=== PATIENT | male | born 1935 | race Caucasian/White ===

== ENCOUNTER 2016-11-12 23:33 | Inpatient (IN) | payer MEDICARE, BC ==
[2016-11-12] MEDS ORDERED: Morphine INJ* 4 MG/ML 1 ML SYRINGE IV ONE (23:43)
[2016-11-12 23:52] LABS: Hematocrit 39 % (42-52); Hemoglobin 12.9 g/dl (14.0-18.0); Mean Corpuscular HGB Conc 33 g/dl (31-36); Mean Corpuscular Hemoglobin 31 pg (27-31); Mean Corpuscular Volume 95 fL (80-94); Mean Platelet Volume 8 um3 (7.4-10.4); Red Blood Count 4.14 10^6/ul (4.0-5.4); Red Cell Distribution Width 14 % (10.5-15); White Blood Count 13.4 10^3/ul (3.5-10.8)
[2016-11-13 00:09] LABS: Albumin 3.6 g/dL (3.2-5.2); BUN/Creatinine Ratio 16.7 (8-20); C Reactive Protein 136.5 mg/L (< 5.00); Calcium 8.5 mg/dL (8.6-10.3); EGFR African American 96.9 (>60); EGFR Non-African American 75.4 (>60); Globulin 3.8 g/dL (2-4); Potassium 3.9 mmol/L (3.5-5.0); Total Bilirubin 1.2 mg/dL (0.2-1.0); Total Protein 7.4 g/dL (6.4-8.9)
[2016-11-13] MEDS ORDERED: Levofloxacin 750 MG IVPREMIX(* 750 MG/150 ML BAG IVPB ONE (00:12)
[2016-11-13] MEDS ORDERED: NS 0.9% 1000 ML* 2,100 ML IV ONE (00:14)
[2016-11-13 00:16] LABS: Troponin I 0.07 ng/mL (<0.04)
[2016-11-13 00:24] LABS: FIO2 35; PCO2 Arterial 39 mmHg (35-45)
[2016-11-13 00:25] LABS: EPAP 6; IPAP 10
--- NOTE | 2016-11-13 01:09 | ED ---
Hillary Anderson Alfonso, scribed for Beth Eagle MD on 11/13/16 at 0021 . Shortness of Breath - HPI Summary HPI Summary: This patient is an 81 year old M BIBA to [facility] with a chief complaint of SOB worse since yesterday. Pt rates the pain 0/10 in severity. Symptoms aggravated and alleviated by nothing. Pt reports cough. Patient lives with . Tobacco abuse disorder. PMHx of COPD, DM, HTN, and CHF. - History of Current Complaint Chief Complaint: EDShortnessOfBreath Time Seen by Provider: 11/12/16 23:55 Hx Obtained From: Patient Onset/Duration: Sudden Onset, Lasting Days, Worse Since - Yesterday Current Severity: Moderate Aggrevating Factors: Nothing Alleviating Factors: Nothing Associated Signs & Symptoms: Cough (Productive) - Allergy/Home Medications Allergies/Adverse Reactions: Allergies Allergy/AdvReac Type Severity Reaction Status Date / Time Amoxicillin Allergy Rash Verified 11/13/16 00:01 Penicillins Allergy Rash Verified 11/13/16 00:01 Home Medications: Home Medications Furosemide [Lasix] 40 mg PO DAILY 11/12/16 [History Confirmed 11/12/16] Lisinopril [Zestril 10 MG-] 10 mg PO DAILY 11/12/16 [History Confirmed 11/12/16] Metformin ER (NF) 500 mg PO DAILY 11/12/16 [History Confirmed 11/12/16] Nitroglycerin [Nitro-Bid] 2 % TD DAILY PRN 11/12/16 [History Confirmed 11/12/16] Tiotropium CAP.INH* [Spiriva CAP.INH*] 1 cap.inh INH DAILY 11/12/16 [History Confirmed 11/12/16] PMH/Surg Hx/FS Hx/Imm Hx Endocrine/Hematology History: Reports: Hx Diabetes Cardiovascular History: Reports: Hx Congestive Heart Failure, Hx Hypertension Respiratory History: Reports: Hx Asthma, Hx Chronic Obstructive Pulmonary Disease (COPD) Infectious Disease History: No Infectious Disease History: Denies: Traveled Outside the [place] in Last 30 Days - Family History Known Family History: Negative: Hypertension - Social History Lives: With Family - Alcohol Use: None Substance Use Type: Reports: None Smoking Status (MU): Heavy Every Day Tobacco Smoker Review of Systems Constitutional: Negative Positive: Shortness Of Breath, Cough All Other Systems Reviewed And Are Negative: Yes Physical Exam Triage Information Reviewed: Yes Vital Signs On Initial Exam: Initial Vitals Temp Pulse Resp BP Pulse Ox 99.5 F 115 38 158/90 90 11/12/16 23:45 11/12/16 23:45 11/12/16 23:45 11/12/16 23:45 11/12/16 23:45 Vital Signs Reviewed: Yes Appearance: Positive: No Pain Distress, Ill-Appearing - Mild Skin: Positive: Warm, Skin Color Reflects Adequate Perfusion, Dry Eyes: Positive: EOMI, RICHARD ENT: Positive: Pharynx normal, TMs normal Neck: Positive: Supple, Nontender Respiratory/Lung Sounds: Positive: Breath Sounds Present, Other - Tachypneic. Crackles at left base. Cardiovascular: Positive: Tachycardia, Other - No gallops. Negative: Murmur, Rub Abdomen Description: Positive: Nontender, No Organomegaly, Other: - No rebounding. Negative: Distended, Guarding Bowel Sounds: Positive: Present Musculoskeletal: Positive: Strength/ROM Intact, Other - No edema Neurological: Positive: Sensory/Motor Intact, Alert, Oriented to Person Place, Time, CN Intact II-III - 2-12 Psychiatric: Positive: Affect/Mood Appropriate - So Coma Scale Coma Scale Total: 15 Diagnostics - Vital Signs Vital Signs Temp Pulse Resp BP Pulse Ox 11/13/16 00:13 32 11/13/16 00:10 105 28 98 11/12/16 23:45 99.5 F 115 36 158/90 90 - Laboratory Lab Results: Lab Results 11/12/16 11/12/16 11/12/16 Range/Units 23:40 23:40 23:40 WBC 13.4 H (3.5-10.8) 10^3/ul RBC 4.14 (4.0-5.4) 10^6/ul Hgb 12.9 L (14.0-18.0) g/dl Hct 39 L (42-52) % MCV 95 H (80-94) fL MCH 31 (27-31) pg MCHC 33 (31-36) g/dl RDW 14 (10.5-15) % Plt Count 152 (150-450) 10^3/ul MPV 8 (7.4-10.4) um3 Neut % (Auto) 76.5 (38-83) % Lymph % (Auto) 13.2 L (25-47) % [place] % (Auto) 9.9 H (1-9) % Eos % (Auto) 0.1 (0-6) % Baso % (Auto) 0.3 (0-2) % Absolute Neuts (auto) 10.2 H (1.5-7.7) 10^3/ul Absolute Lymphs (auto) 1.8 (1.0-4.8) 10^3/ul Absolute Monos (auto) 1.3 H (0-0.8) 10^3/ul Absolute Eos (auto) 0 (0-0.6) 10^3/ul Absolute Basos (auto) 0 (0-0.2) 10^3/ul Absolute Nucleated RBC 0 10^3/ul Nucleated RBC % 0 Sodium 129 L (133-145) mmol/L Potassium 3.9 (3.5-5.0) mmol/L Chloride 96 L (101-111) mmol/L Carbon Dioxide 22 (22-32) mmol/L Anion Gap 11 (2-11) mmol/L BUN 16 (6-24) mg/dL Creatinine 0.96 (0.67-1.17) mg/dL Est GFR ( Amer) 96.9 (>60) Est GFR (Non-Af Amer) 75.4 (>60) BUN/Creatinine Ratio 16.7 (8-20) Glucose 208 H (70-100) mg/dL Lactic Acid 2.9 H* (0.5-2.0) mmol/L Calcium 8.5 L (8.6-10.3) mg/dL Total Bilirubin 1.20 H (0.2-1.0) mg/dL AST 15 (13-39) U/L ALT 7 (7-52) U/L Alkaline Phosphatase 61 (34-104) U/L Total Creatine Kinase 74 (10-223) U/L CK-MB (CK-2) 3.7 (0.6-6.3) ng/mL Myoglobin 65.7 (17.4-105.7) ng/mL Troponin I Pending C-Reactive Protein 136.50 H (< 5.00) mg/L Total Protein 7.4 (6.4-8.9) g/dL Albumin 3.6 (3.2-5.2) g/dL Globulin 3.8 (2-4) g/dL Albumin/Globulin Ratio 0.9 L (1-3) Result Diagrams: 11/12/16 23:40 11/12/16 23:40 Lab Statement: Any lab studies that have been ordered have been reviewed, and results considered in the medical decision making process. - Radiology CXR Radiology Interpretation Completed By: ED Physician - Infiltrate in left lower lobe. Infiltrate vs chronic lung disease in right lower lobe. - EKG 2347 Cardiac Rate: Tachycardia - BPM 111 EKG Rhythm: Sinus Tachycardia Ectopy: PVCs EKG Interpretation: Anterior Q-waves EKG Comparison: No Significant Change - 06/25/2008 Course/Dx - Course Course Of Treatment: 81 yo male with sob, bnp over 1100, wbc better with bipap and levaquin pt to be admitted by dr. macias - Diagnoses Provider Diagnoses: Congestive heart failure (CHF), COPD exacerbation - Physician Notifications Discussed Care of Patient With: Brigido Macias Time Discussed With Above Provider: 00:17 Instructed by Provider To: Other - Consulted Dr. Macias (hospitalist) who agrees to admit. Discharge - Discharge Plan Condition: Stable Disposition: ADMITTED TO [facility] Referrals: Fletcher SCHMIDT,Erik Roberts [Primary Care Provider] - Sonido Weller MD [Medical Doctor] - The documentation as recorded by the Hillary burkett Alfonso accurately reflects the service I personally performed and the decisions made by me, Beth Eagle MD.
[2016-11-13] MEDS ORDERED: Nitroglycerin 2% OINT* 1 GM PAK TOPICAL PRN (01:14)
[2016-11-13] MEDS ORDERED: Acetaminophen TAB* 325 MG PO PRN (01:17)
[2016-11-13] MEDS ORDERED: Dextrose 50% Syringe 50 ML* 25 GM/50 ML SYRINGE IV PUSH PRN (01:19)
[2016-11-13] MEDS ORDERED: Furosemide IV* 10 MG/ML VIAL (40 MG) IV ONE (01:19)
[2016-11-13] MEDS ORDERED: Morphine INJ* 2 MG/ML 1 ML SYRINGE IV PRN (01:23)
[2016-11-13] MEDS ORDERED: Iodixanol* (CONTRAST) 320 MG/ML 100 ML SDV IV ONE (02:40)
[2016-11-13] MEDS ORDERED: Ondansetron INJ* 2 MG/ML VIAL IV PRN (02:48)
[2016-11-13] MEDS ORDERED: Ondansetron INJ* 2 MG/ML VIAL ONE (02:49)
[2016-11-13] MEDS ORDERED: Heparin DRIP 25,000 UNITS(*) 25,000 UNITS/500 ML BAG IV SCH ×2 (04:15→04:35)
[2016-11-13] MEDS ORDERED: Heparin VIAL(*) 5000 UNITS/ML VIAL (FIVE THOUSAND) IV SCH (05:00)
[2016-11-13] MEDS ORDERED: Heparin VIAL(*) 5000 UNITS/ML VIAL (FIVE THOUSAND) SUBCUT SCH (06:00)
[2016-11-13 06:54] LABS: Hematocrit 37 % (42-52); Hemoglobin 12.3 g/dl (14.0-18.0); Mean Corpuscular HGB Conc 34 g/dl (31-36); Mean Corpuscular Hemoglobin 32 pg (27-31); Mean Corpuscular Volume 95 fL (80-94); Mean Platelet Volume 8 um3 (7.4-10.4); Red Blood Count 3.84 10^6/ul (4.0-5.4); Red Cell Distribution Width 14 % (10.5-15); White Blood Count 10.5 10^3/ul (3.5-10.8)
[2016-11-13 06:58] LABS: EGFR African American 101.8 (>60); EGFR Non-African American 79.2 (>60)
--- NOTE | 2016-11-13 07:17 | HP ---
CC: Erik Bynum MD; Sonido Weller MD * HISTORY AND PHYSICAL: DATE OF ADMISSION: 11/13/16 CHIEF COMPLAINT: Shortness of breath. HISTORY OF PRESENT ILLNESS: The patient is an 81-year-old gentleman who says that for the last two days he has been feeling increasingly short of breath. He denies any chest pain or chest tightness. He does feel like he is "plugged up." He has some wheezing, but no fevers or chills, and a slight cough. Shortness of breath is not positionally he says, but it is worse with any minimal exertion. He normally uses 3 L of oxygen at night or while ambulating. He has been using his medications more frequently, but he says have not been of any benefit. In the ED, the patient was evaluated and found to be in respiratory distress, was initially placed on BiPAP. However, the patient did improve and his ABG was ___ unremarkable. His D- dimer is somewhat elevated and , with an elevated troponin, we will be getting a CTA of his chest. PAST MEDICAL HISTORY: Significant for COPD, two myocardial infarctions with stents placed x2, diabetes mellitus x2, and tobacco abuse. PAST SURGICAL HISTORY: Significant for bilateral carotid endarterectomies. CURRENT MEDICATIONS: 1. Spiriva one capsule inhaled daily. 2. Nitroglycerin two topical daily as needed. 3. Metformin ER 500 mg daily. 4. Lisinopril 10 mg daily. 5. Furosemide 40 mg daily. ALLERGIES: He has an allergy/adverse reaction to AMOXICILLIN and PENICILLIN. FAMILY HISTORY: Reviewed and noncontributory. SOCIAL HISTORY: One pack a day for 62 years. Alcohol, has not drank for 30 years and no recreational drug use. 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 His , Bonita Matthew, is his health care proxy. He has 3 children. REVIEW OF SYSTEMS: A 14-point review of systems was completed with the patient. All pertinent positives and negative are in the history of present illness, otherwise it is negative. PHYSICAL EXAMINATION GENERAL: Pleasant, thin gentleman lying in bed. Breathing is somewhat labored but not in acute distress. VITAL SIGNS: Temperature is 99.5 degrees, heart rate 99 beats per minute, respiratory rate is 24 breaths per minute, pulse oximetry 93%, blood pressure 112/55. HEENT: Normocephalic and atraumatic. Pupils are equal, round and reactive to light. Moist mucous membranes. NECK: Supple. No JVD, bruits, palpable thyroid or lymphadenopathy. CHEST: He has got diminished breath sounds bilaterally. CARDIOVASCULAR: S1, S2 appreciated. ABDOMEN: Positive bowel sounds. Soft, nontender, and nondistended. No hepatosplenomegaly. EXTREMITIES: No cyanosis, clubbing, or edema. +2 pulses bilaterally. NEUROLOGIC: Alert and oriented x3. Moves all extremities. SKIN: No rashes or abnormalities. LABORATORY DATA: White count 13.4, hemoglobin 12.9, hematocrit 39, platelets 152. Sodium 129, potassium 2.9, chloride 96, CO2 of 22, BUN 16, creatinine 0.96 , glucose 208. Lactic acid 2.9. Troponin 0.07. BNP 1101. INR 1.12. D-dimer greater than 1050. ABG - pH 7.36, pCO2 39, pO2 135, bicarb 22.4, pO2 99.2, base axis -3.2. Chest x-ray shows chronic findings including what appears to be possible fibrotic changes. EKG shows sinus tachycardia rate of 111 beats per minute, normal axis, PVCs, non - specific ST-T wave changes. ASSESSMENT AND PLAN: 1. Shortness of breath. I will get a CTA with his elevated troponin and elevated D-dimer. I will place him in the ICU. He is currently not using the BiPAP, but he may require it. He is a DNI/DNR. I will place him on respiratory treatment protocol and supplemental oxygen. Further treatment as his condition indicates. 2. Diabetes mellitus. Hold metformin and fingerstick sliding scale insulin. 3. Chronic obstructive pulmonary disease. Continue Spiriva, and again respiratory treatment protocol. 4. Hypertension. Stable, continue lisinopril. 5. FEN. Consistent carb diet. 6. DVT prophylaxis. Heparin subcu. 7. The patient is a full code. Do not resuscitate/do not intubate. TIME SPENT: Over 80 minutes were spent on this H and P, more than 45 minutes of which were spent in direct [id number] contact with the patient in evaluation, physical exam, counseling, and coordination of care. [id number]/[facility] #: [id number] MTDD
[2016-11-13] MEDS: Tiotropium CAP.INH* CAP.INH/18 MCG INH SCH (07:18)
[2016-11-13 07:29] LABS: Troponin I 7.06 ng/mL (<0.04)
--- NOTE | 2016-11-13 07:31 | RAD ---
INDICATION: Shortness of breath. COMPARISON: Most recent comparison chest x-rays dated June 25, 2008 TECHNIQUE: Single AP portable view of the chest was obtained. FINDINGS: Image quality is compromised due to the relative inferiority of a portable chest x-ray. The heart and mediastinum exhibit normal size and contour. There is coarse calcification again seen at the arch of the aorta. Similar to the previous chest x-ray there is diffuse reticulonodular density. This appears worse when compared to the previous chest x-ray. Furthermore the pulmonary vasculature appears mildly engorged and indistinct. There is bilateral costophrenic angle blunting, more severe at the right lung base than the left. Visualized bones are normal for the patient's age. IMPRESSION: In the correct clinical setting chest x-ray findings are most consistent with exacerbation of congestive heart failure with a small right lung base pleural effusion.
--- NOTE | 2016-11-13 07:45 | RAD ---
HISTORY: Shortness of breath COMPARISONS: November 11, 2016 TECHNIQUE: Multiple contiguous axial CT scans of the chest were obtained after the administration of nonionic intravenous contrast, timed to the pulmonary arterial phase of contrast enhancement.. Coronal and sagittal multiplanar reformations are also submitted for review. FINDINGS: NECK AND THYROID: The lower neck and thyroid are unremarkable. CHEST WALL: There is no lower cervical, axillary, or supraclavicular lymphadenopathy by size criteria. HEART AND PERICARDIUM: The heart is unremarkable. AORTA AND PULMONARY VASCULATURE: There is no pulmonary arterial filling defect to suggest pulmonary embolism. There is no linear filling defect within the aorta to suggest aortic dissection. There is atherosclerosis of the thoracic aorta, which is tortuous. MEDIASTINUM: There are subcentimeter short axis. Vascular and window lymph nodes. There are calcified mediastinal lymph nodes. ANNE MARIE: There are calcified hilar lymph nodes. There is a 1.3 cm short axis left hilar lymph node best visualized on axial image 69. AIRWAY AND ESOPHAGUS: There is peribronchial vascular thickening with opacification of the segmental airways to the left lower lobe suggestive of mucous plugging. LUNG PARENCHYMA: There is diffuse centrilobular emphysematous change. There are calcified granulomas of the lung. PLEURA: No pleural abnormalities are noted. UPPER ABDOMEN: There is nodule of the left adrenal gland measuring 1 Hounsfield units in attenuation consistent with an adenoma. BONES AND SOFT TISSUES: Degenerative changes are noted. OTHER: None. IMPRESSION: 1. NO PULMONARY ARTERIAL FILLING DEFECTS TO SUGGEST PULMONARY WAS OBTAINED. 2. EMPHYSEMA. 3. 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 4. FINDINGS SUGGESTIVE OF MUCOUS PLUGGING TO THE SEGMENTAL AIRWAYS OF THE LEFT LOWER LOBE 5. 1.3 CM SHORT AXIS LEFT HILAR LYMPH NODE. SUBCENTIMETER SHORT AXIS PLACENTAL AND HILAR LYMPH NODES ELSEWHERE. 6. ATHEROSCLEROSIS. 7. LEFT ADRENAL ADENOMA
[2016-11-13] MEDS ORDERED: Perflutren Lipid Microsphere* 3 ML VIAL ONE (07:47)
[2016-11-13] MEDS: Furosemide TAB* 20 MG PO SCH (07:49)
[2016-11-13] MEDS ORDERED: Aspirin TAB* 325 MG PO SCH (08:00)
[2016-11-13] MEDS: Insulin LISPRO* 1 UNITS UNIT SUBCUT SCH ×4 (08:12→20:42)
[2016-11-13] MEDS ORDERED: Clopidogrel TAB* 300 MG PO ONE (08:39)
[2016-11-13] MEDS ORDERED: Spiriva Inhaler DEVICE* 1 EACH DEVICE INH ONE (09:00)
[2016-11-13] MEDS ORDERED: Lisinopril TAB* 10 MG PO SCH ×2 (09:00→17:17)
[2016-11-13] MEDS: Metoprolol Succinate XL TAB* 25 MG PO SCH (09:04)
--- NOTE | 2016-11-13 09:29 | ECHO ---
Patient: SAVANNA PAIZ [facility] Rec#: [id number] : 1935 Date: 11/13/2016 Age: 81y Weight: kg / NaN lbs Sex: M Room#: ICU-5 Admit Date#: 11/13/2016 Type: Inpatient Referring: Brigido Macias MD Reading: Pedro Collins DO Field Merchandiser: Merna Rick RDCS CC: Erik Bynum MD Transthoracic Echocardiogram Indication: Respiratory Failure BP: 110/56 HR: 86 Rhythm: NSR with PVCs Findings History: COPD,DM,HTN,CHF. Technical Comments: The study quality is good. Completed at 0835. Left Ventricle: The left ventricular chamber size is mildly dilated. There are multiple regional wall motion abnormalities. There is severely decreased left ventricular systolic function. The estimated ejection fraction is 20-25%. average volumetric calculation between A2C and A4C is 24% Abnormal left ventricular diastolic function is observed. Left Atrium: The left atrium is mildly dilated. Right Ventricle: The right ventricular chamber size and systolic function are within normal limits. Right Atrium: The right atrial cavity size is normal. Aortic Valve: The aortic valve leaflets are mildly thickened. There is no evidence of aortic regurgitation. There is mild aortic stenosis. Mitral Valve: The mitral valve leaflets are mildly thickened. There is mild mitral regurgitation. There is no evidence of mitral stenosis. Tricuspid Valve: The tricuspid valve leaflets are normal. There is mild to moderate tricuspid regurgitation. There is evidence of mild pulmonary hypertension. There is no tricuspid stenosis. Pulmonic Valve: The pulmonic valve appears normal. There is a trace pulmonic regurgitation. There is no pulmonic stenosis. Pericardium: There is no significant pericardial effusion. Aorta: There is mild dilatation of the ascending aorta. The aortic arch is not well visualized. There is no dilation of the aortic root. Pulmonary Artery: The main pulmonary artery is not well visualized. Venous: The inferior vena cava appears normal in size. There is an approximate 50% respiratory change in the inferior vena cava dimension. Contrast: Definity was used to optimize study. A total of 2.5ml used. Intravenous contrast was used to enhance endocardial border definition. Conclusions The left ventricular chamber size is mildly dilated. There are multiple regional wall motion abnormalities. There is severely decreased left ventricular systolic function. The estimated ejection fraction is 20-25%. The right ventricular chamber size and systolic function are within normal limits. There is mild aortic stenosis that may be significantly underestimated in severity There is mild to moderate tricuspid regurgitation. There is evidence of mild pulmonary hypertension. No prior studies available for comparison at time of interpretation Measurements Name Value Normal Range RVIDd (AP) 2D 2.8 cm (0.9 - 2.6) RVDdMajor (2D) 3.3 cm (2.2 - 4.4) RAd ISD 4CH 3.7 cm (3.4 - 4.9) RA (A4C)W 4.5 cm (2.9 - 4.6) IVSd (2D) 0.9 cm (0.6 - 1) LVPWd (2D) 0.7 cm (0.6 - 1) LVIDd (2D) 5.8 cm (3.6 - 5.4) LVIDs (2D) 3.8 cm - LV FS (2D) 23 % (25 - 45) Aortic Annulus 1.8 cm (1.4 - 2.6) Ao root diameter (2D) 3 cm (2.1 - 3.5) Ascending Ao 3.6 cm (2.1 - 3.4) LA dimension (AP) 2D 3.8 cm (2.3 - 3.8) LAd ISD 4CH 4.9 cm (2.9 - 5.3) LA ISD 4CH W 4.2 cm (2.5 - 4.5) Name Value Normal Range LA ESV SP 4CH (A/L) 42 ml - LA ESV SP 2CH (A/L) 53 ml - LA ESV BP (A/L) 49 ml - LA ESV BP (A/L) index 26 ml/m2 - LA ESV SP 4CH (MOD) 39 ml - LA ESV SP 2CH (MOD) 47 ml - LV EDV SP 4CH (MOD) 174.52 ml - LV ESV SP 4CH (MOD) 129.25 ml - EF SP 4CH (MOD) 25.94 % - LV EDV SP 2CH (MOD) 178.72 ml - LV ESV SP 2CH (MOD) 138.75 ml - EF SP 2CH (MOD) 22.37 % - LV EDV BP 175.58 ml - LV ESV BP 133.07 ml - BP EF (MOD) 24.21 % - Name Value Normal Range MV E-wave Vmax 0.6 m/sec - MV deceleration time 164 msec - MV A-wave Vmax 1.3 m/sec - MV E:A ratio 0.45 ratio - LV septal e' Vmax 0.1 m/sec - LV lateral e' Vmax 0.16 m/sec - LV E:e' septal ratio 6 ratio - LV E:e' lateral ratio 3.75 ratio - Name Value Normal Range AV Vmax 1.8 m/sec - AV VTI 35.6 cm - AV peak gradient 12.65 mmHg - AV mean gradient 5.99 mmHg - LVOT diameter 2.1 cm - LVOT Vmax 0.9 m/sec - LVOT VTI 18 cm - LVOT peak gradient 3 mmHg - LVOT mean gradient 1.21 mmHg - JOSE (continuity Vmax) 2.7 cm2 - JOSE (continuity VTI) 1.8 cm2 - Name Value Normal Range TR Vmax 3 m/sec - TR peak gradient 35 mmHg - RAP 8 mmHg - RVSP 43 mmHg - IVC diameter 1.6 cm - Name Value Normal Range PV Vmax 1 m/sec - PV peak gradient 4 mmHg -
[2016-11-13 13:04] LABS: Troponin I 10.6 ng/mL (<0.04)
[2016-11-13] MEDS ORDERED: Nicotine Inhaler* 10 MG AMP INH PRN (13:29)
[2016-11-13] MEDS ORDERED: Mouth Piece, Nicotine* 1 EACH CARTRIDGE INH PRN (13:29)
--- NOTE | 2016-11-13 13:34 | CONSULT ---
Subjective Date of Service: 11/13/16 Interval History: DATE OF ADMISSION and consult: 11/13/16 Service: Hospitalist Tap Out Operator: Dr. Damon Waller [facility] PMD: Dr. Erik Bynum CC: dyspnea Reason for consult: elevated troponin level HISTORY OF PRESENT ILLNESS: Mr. Matthew is an 81-year-old with a history of ongoing tobacco use, HI, PCI, ischemic cardiomyopathy, systolic HF, PAD, COPD, 3L 02 at night or while ambulating. He is a suboptimal historian and his provides a lot of the details. He had a iliac bone marrow biopsies earlier this week. He had a noncontrast CT scan 2 days ago as part of a hematology work-up by Dr. Weller. His states he has not been right since the CT scan. He has had "kidney pain" and hematuria. He has been more dyspneic and increase frequency of his cough and sputum production although he is unsure if there was a change in color. His sputum now which there is a lot of appears blood tinged and greenish. He denies any fever or night sweats. He denies any epigastric, chest or arm pain (symptoms of prior HI). There have been no palpitations or syncope. He was diagnosed with heart failure last year. Stopped plavix several months ago, seemed to be related to generic clopidogrel but rash did not improve after stopping. Prescribed coreg and told to stop nitroglycerine patch within last 6 months, did not know why so he did not make those changes. Found with mucous plugging on CTA scan, leukocytosis and elevated CRP. Being treated for COPD/pneumonia. TTE with LVEF 20-25% and multiple wall motion abormalities. Serial rise in troponin consistent with acute HI. Patient baseline is not very active, able to go out to garden occasionally. Uses riding mower. Limited mostly by lower extremity (assume claudication?) symptoms. PAST MEDICAL HISTORY: - Significant for COPD - myocardial infarction x 2, stents placed x2. Late presentation anteroseptal wall HI 04/1999 received IV TPA and transferred to [facility]. Had "moderate" LV dysfunction at that time - diabetes mellitus PAST SURGICAL HISTORY: Significant for bilateral carotid endarterectomies PCI What is described as aortofemoral stents ALLERGIES: He has an allergy/adverse reaction to AMOXICILLIN and PENICILLIN. Questionable rash to generic clopidogrel but stopped that and rash did not improve FAMILY HISTORY: Reviewed and noncontributory. SOCIAL HISTORY: One pack a day for 62 years. Alcohol, has not drank for 30 years and no recreational drug use. 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 His , Bonita Matthew, is his health care proxy. He has 3 children. Medications Active Medications: Acetaminophen (Tylenol Tab*) 650 mg PO Q4H PRN PRN Reason: FEVER/PAIN Aspirin (Aspirin Ec Low Dose*) 81 mg PO DAILY [facility] Clopidogrel Bisulfate (Plavix Tab*) 75 mg PO DAILY [facility] Dextrose (D50w Syringe 50 Ml*) 12.5 gm IV PUSH .FOR FS < 60 - SS PRN PRN Reason: FS < 60 Furosemide (Lasix Tab*) 40 mg PO DAILY [facility] Last Admin: 11/13/16 07:49 Dose: 40 mg Levofloxacin/Dextrose (Levaquin 750 Mg Ivpremix(*)) 750 mg in 150 mls @ 100 mls /hr IVPB Q24H [facility] Insulin Human Lispro (Humalog*) 0 units SUBCUT ACHS [facility] PRN Reason: Protocol Last Admin: 11/13/16 13:01 Dose: Not Given Lisinopril (Prinivil Tab*) 10 mg PO DAILY [facility] Last Admin: 11/13/16 07:49 Dose: 10 mg Metoprolol Succinate (Toprol Xl Tab*) 25 mg PO DAILY [facility] Last Admin: 11/13/16 09:04 Dose: 25 mg Nicotine (Nicotine Patch 21 Mg/24 Hr*) 1 patch TRANSDERM DAILY [facility] Ondansetron HCl (Zofran Inj*) 4 mg IV Q4H PRN PRN Reason: NAUSEA Pharmacy Profile Note (Nicotine Patch Removal Note*) 1 note FOLLOW UP 2100 [facility] Tiotropium [place] (Spiriva Cap.Inh*) 1 cap INH DAILY [facility] Last Admin: 11/13/16 07:18 Dose: 1 cap.inh Home Medications: Home med list Medication Instructions Recorded Confirmed Type Aspirin [Aspirin 81 MG TAB] 81 mg PO DAILY #100 tab 10/20/16 Rx Furosemide [Lasix] 40 mg PO DAILY 11/12/16 11/12/16 History Lisinopril [Zestril 10 MG-] 10 mg PO DAILY 11/12/16 11/12/16 History Metformin ER (NF) 500 mg PO DAILY 11/12/16 11/12/16 History Nitroglycerin [Nitro-Bid] 2 % TD DAILY PRN 11/12/16 11/12/16 History Tiotropium CAP.INH* [Spiriva 1 cap.inh INH DAILY 11/12/16 11/12/16 History CAP.INH*] Review of Systems - Measurements Intake and Output: Intake and Output Last 24 Hours 11/11/16 11/12/16 11/13/16 11/14/16 06:59 06:59 06:59 06:59 Intake Total 110 600 Output Total 1200 Balance -1090 600 Weight 154 lb 8.705 oz Intake: IV Fluids 10 NS (0.9%) 10 Oral 100 600 Output: Clark 1200 - Review of Systems Constitutional Symptoms: Positive: Weakness, Fatigue Negative: Weight Gain, Weight Loss, Fever, Night Sweats, Unexplained Falls Dermatology: Negative: Rash, Skin Lesions HEENT: Negative: Change in Hearing, Vertigo, Tinnitus Eyes: Negative: Change in Vision, Double Vision Thyroid: Positive: Primary Hyperthyroidism Negative: Weight Loss, Weight Gain, Change in Skin/Hair, Change in Menstration Pulmonary: Positive: Cough, Sputum, Wheezing, Respiratory Distress, COPD, Exercise Intolerance, Home Oxygen Negative: Asthma Cardiology: Positive: Shortness of Breath Negative: Chest Pain, Palpitations, Swelling of Ankles, Peripheral Vascular Dis, Edema, Faintness, Syncope, Claudication, Paroxysmal Nocturnal Dyspnea, Orthopnea Gastroenterology: Negative: Abdominal Pain, Nausea, Vomiting, Anorexia, Indigestion, Difficulty Swallowing, Constipation, Diarrhea, Haematemesis, Melena Genital - Urinary: Negative: Dysuria, Hematuria Musculoskeletal: Negative: Joint Pain, Joint Stiffness, Arthritis Endocrinology: Negative: Adrenal Problems, Gonadal Problems, Family Hx Endocrine Disorders, Obesity, Diabetes, Hyperglycemia, Hypoglycemia, Polydipsia, Polyuria Hematologic/Lymphatic: Positive: Use of Antiplatelet Drugs Negative: Anemia, Easy Brusing, Hx Leukemia, Hx Lymphoma, Use of Anticoagulant Neurology: Positive: Change in Memory Negative: Headaches, Migraines, Change in Vision, Diplopia, Dizziness, Change in Balancing, Change in Coordination, Change in Speech, Change in Sphincter Function, Hx of Stroke\\TIA, Hx Seizures Psychiatry: Negative: Tearfulness, Unusual Fatigue, Unusual Anxiety Allergic/Immunologic: Negative: Hx Seasonal Allergies, Hx HIV, Immunocompromise, Swollen Glands Lymph Nodes Review of Systems Statement: All other review of systems negative, unless stated above. Objective Vital Signs: Temp Pulse Resp BP Pulse Ox 98.6 F 82 18 105/65 94 11/13/16 13:00 11/13/16 13:00 11/13/16 13:03 11/13/16 12:00 11/13/16 13:00 Appearance: frail, nad, pleasant Ears/Nose/Mouth/Throat: Clear Oropharnyx, Mucous Membranes Moist Neck: Trachea Midline, - - uncertain jvp Respiratory: Symmetrical Chest Expansion and Respiratory Effort - scattered rhonchi Cardiovascular: RRR, No Edema, - - distant heart sounds, no significnat murmur Abdominal: NL Sounds; No Tenderness; No Distention Extremities: No Edema Skin: No Nodules or Sclerosis Neurological: Alert and Oriented x 3, - - some evidence of short term memory loss Laboratory Results: 11/13/16 06:30 11/13/16 06:30 INR (Anticoag Therapy) 1.12 (0.89-1.11) H 11/12/16 23:40 APTT 62.4 seconds (26.0-36.3) H 11/13/16 12:25 Total Bilirubin 1.20 mg/dL (0.2-1.0) H 11/12/16 23:40 AST 15 U/L (13-39) 11/12/16 23:40 ALT 7 U/L (7-52) 11/12/16 23:40 Alkaline Phosphatase 61 U/L (34-104) 11/12/16 23:40 CK-MB (CK-2) 57.9 ng/mL (0.6-6.3) H 11/13/16 12:25 B-Natriuretic Peptide 1101 pg/mL (-100) H 11/12/16 23:40 Total Protein 7.4 g/dL (6.4-8.9) 11/12/16 23:40 Albumin 3.6 g/dL (3.2-5.2) 11/12/16 23:40 Globulin 3.8 g/dL (2-4) 11/12/16 23:40 Albumin/Globulin Ratio 0.9 (1-3) L 11/12/16 23:40 11/12/16 11/13/16 11/13/16 23:40 03:30 06:30 Troponin I 0.07 H* 2.57 H* 7.06 H* 11/13/16 12:25 Troponin I 10.60 H* Diagnostic Imaging: TTE 11/13/2016: Mildly dilated LV with LVEF 20-25%, multiple WMA, mild , mild- mod TR with mild pHTN CTA 11/13/2016: No PE, + emphysema, exposure to granulomatous disease, mucuous plunng LLL EKG Data: EKG 11/12/2016: sinus tachycardia, old anteroseptal HI, PVC, anterolateral TW inversions that appears new from 06/200811/13/2016: NSR, PVC, old anteroseptal HI, LVH with repolarization vs. ischemic ST depression anterolateral leads Assessment/Plan 81 year old man with ongoing tobacco use, severe diffuse vascular disease including b/l carotid endarterectomy, multiple HI s/p PCI, heart failure, ongoing tobacco use, COPD on oxygen presents with pneumonia/COPD exacerbation associated with a type 2 acute HI and CHF exacerbation, LVEF 20-25% Symptoms at baseline at this time. Has hematuria on heparin gtt. - Patient does not want any invasive cardiac procedures/cardiac catheterizations so will continue with medical therapy and optimization - He does not meed criteria for an ICD because he has not been on an appropriate time of optimal medical therapy. He is unsure if he would want a primary prevention ICD, he will think about this, if so because his cardiomyopathy is ischemic related, a lifevest may be reasonable. His has a pacemaker and he understands this would be a similar type of procedure. He is currently DNR status. - Continue aspirin 81 mg po daily - Has received 600 mg PO plavix x 1, continue 75 mg po daily. - Given hematuria (started ), stop heparin. DVT prophylaxis and hematuria work-up per primary service - d/c nitroglycerine patch - Start toprol 25 mg PO daily, will uptitrate as tolerated - Continue lisinopril 10 mg PO daily - Continue lasix 40 mg PO daily - Will consider adding aldactone pending clinical course - Start atorvastatin 40 mg po daily and check lipid panel - Trend troponin to peak - Nicotine patch and inhalers have been prescribed, patient counseled on smoking cessation - Antibiotics and other treatment treatment per primary service - Will request records from [facility] and Dr. Urias office - Above discussed with patient, and family at bedside - Discussed with Dr. Livingston Thank you for allowing me to participate in the cardiovascular care of this patient. Please do not hesitate to contact me with questions or concerns.
[2016-11-13] MEDS: Nicotine PATCH 21 MG/24 HR* PATCH TRANSDERM SCH (13:41)
[2016-11-13 13:54] LABS: Urine Bacteria Absent (Absent); Urine Bilirubin Negative (Negative); Urine Glucose Negative (Negative); Urine Nitrite Negative (Negative)
[2016-11-13] MEDS: cefTRIAXone VIAL(*) 1,000 MG in NS 0.9% 50 ML* 50 ML IVPB SCH (14:08)
[2016-11-13] MEDS: Azithromycin IV(*) 500 MG in NS 0.9% 250 ML* 250 ML IVPB SCH (14:28)
--- NOTE | 2016-11-13 14:45 | PN ---
Subjective Date of Service: 11/13/16 Interval History: Pt is a poor historian, tangential. stated that it's because he is a "joker ". H/o coughing purulent sputum x 2 months. Is on 3 L of 02 at home and smokes 2 PPD. 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 Noted to have hematuria in Clark bag this afternoon Objective Active Medications: Acetaminophen (Tylenol Tab*) 650 mg PO Q4H PRN PRN Reason: FEVER/PAIN Aspirin (Aspirin Ec Low Dose*) 81 mg PO DAILY [facility] Clopidogrel Bisulfate (Plavix Tab*) 75 mg PO DAILY [facility] Device (Nicotine Mouth Piece*) 1 each INH .USE WITH NICOTROL PRN PRN Reason: CRAVING Last Admin: 11/13/16 13:41 Dose: 1 each Dextrose (D50w Syringe 50 Ml*) 12.5 gm IV PUSH .FOR FS < 60 - SS PRN PRN Reason: FS < 60 Furosemide (Lasix Tab*) 40 mg PO DAILY [facility] Last Admin: 11/13/16 07:49 Dose: 40 mg Ceftriaxone Sodium 1,000 mg/ (Sodium Chloride) 50 mls @ 200 mls/hr IVPB Q24H [facility] Last Admin: 11/13/16 14:08 Dose: 200 mls/hr Azithromycin 500 mg/ Sodium (Chloride) 250 mls @ 250 mls/hr IVPB Q24H [facility] Last Admin: 11/13/16 14:28 Dose: 250 mls/hr Insulin Human Lispro (Humalog*) 0 units SUBCUT ACHS [facility] PRN Reason: Protocol Last Admin: 11/13/16 13:01 Dose: Not Given Lisinopril (Prinivil Tab*) 10 mg PO DAILY [facility] Last Admin: 11/13/16 07:49 Dose: 10 mg Metoprolol Succinate (Toprol Xl Tab*) 25 mg PO DAILY [facility] Last Admin: 11/13/16 09:04 Dose: 25 mg Nicotine (Nicotine Patch 21 Mg/24 Hr*) 1 patch TRANSDERM DAILY [facility] Last Admin: 11/13/16 13:41 Dose: 1 patch Nicotine (Nicotine Inhaler*) 10 mg INH Q2H PRN PRN Reason: CRAVING Last Admin: 11/13/16 13:41 Dose: 10 mg Ondansetron HCl (Zofran Inj*) 4 mg IV Q4H PRN PRN Reason: NAUSEA Pharmacy Profile Note (Nicotine Patch Removal Note*) 1 note FOLLOW UP 2100 [facility] Tiotropium [place] (Spiriva Cap.Inh*) 1 cap INH DAILY [facility] Last Admin: 11/13/16 07:18 Dose: 1 cap.inh Vital Signs 11/13/16 11/13/16 11/13/16 01:30 01:52 02:00 Temperature Pulse Rate Respiratory 29 25 31 Rate Blood Pressure 88/64 112/72 132/75 (mmHg) O2 Sat by Pulse 94 95 95 Oximetry 11/13/16 11/13/16 11/13/16 02:30 02:40 02:45 Temperature 96.1 F Pulse Rate 109 97 110 Respiratory 29 26 Rate Blood Pressure 137/108 151/81 (mmHg) O2 Sat by Pulse 90 94 92 Oximetry 11/13/16 11/13/16 11/13/16 02:47 03:00 03:15 Temperature Pulse Rate 116 104 Respiratory 27 28 Rate Blood Pressure 144/74 123/101 (mmHg) O2 Sat by Pulse 89 90 Oximetry 11/13/16 11/13/16 11/13/16 04:00 04:03 04:04 Temperature Pulse Rate 89 88 88 Respiratory 22 22 25 Rate Blood Pressure 82/38 77/48 114/61 (mmHg) O2 Sat by Pulse 97 98 97 Oximetry 11/13/16 11/13/16 11/13/16 04:28 05:00 06:00 Temperature 98.3 F Pulse Rate Respiratory 25 21 22 Rate Blood Pressure 106/50 110/56 (mmHg) O2 Sat by Pulse 98 98 Oximetry 11/13/16 11/13/16 11/13/16 06:16 07:00 07:21 Temperature 98.4 F Pulse Rate 87 Respiratory 24 23 Rate Blood Pressure 105/52 (mmHg) O2 Sat by Pulse 97 98 Oximetry 11/13/16 11/13/16 11/13/16 07:32 08:00 08:20 Temperature 98.6 F Pulse Rate 66 Respiratory 20 17 18 Rate Blood Pressure 107/92 (mmHg) O2 Sat by Pulse 95 Oximetry 11/13/16 11/13/16 11/13/16 09:00 09:12 10:00 Temperature 99.0 F 98.8 F Pulse Rate 90 84 Respiratory 21 20 22 Rate Blood Pressure 131/77 102/68 (mmHg) O2 Sat by Pulse 96 97 Oximetry 11/13/16 11/13/16 11/13/16 10:29 11:00 12:00 Temperature 98.4 F Pulse Rate 77 77 Respiratory 18 18 Rate Blood Pressure 91/44 105/65 (mmHg) O2 Sat by Pulse 98 99 Oximetry 11/13/16 11/13/16 11/13/16 12:32 13:00 13:03 Temperature 98.6 F Pulse Rate 82 Respiratory 18 22 18 Rate Blood Pressure 97/67 (mmHg) O2 Sat by Pulse 94 Oximetry 11/13/16 11/13/16 13:41 14:00 Temperature Pulse Rate 77 Respiratory 20 20 Rate Blood Pressure 98/79 (mmHg) O2 Sat by Pulse 96 Oximetry Oxygen Devices in Use Now: Nasal Cannula - at 3 L Appearance: 81 yo M in nAD, AAOx3 Eyes: No Scleral Icterus, PERRLA Ears/Nose/Mouth/Throat: NL Teeth, Lips, Gums, Mucous Membranes Moist Neck: NL Appearance and Movements; NL JVP, Trachea Midline Respiratory: Symmetrical Chest Expansion and Respiratory Effort, - - diminished breath sounds b/l with scattered rhonchi b/l mid lungs Cardiovascular: NL Sounds; No Murmurs; No JVD, RRR Abdominal: NL Sounds; No Tenderness; No Distention Lymphatic: No Cervical Adenopathy Extremities: No Edema, No Clubbing, Cyanosis Skin: No Rash or Ulcers, No Nodules or Sclerosis Neurological: Alert and Oriented x 3, NL Muscle Strength and Tone Result Diagrams: 11/13/16 06:30 11/13/16 06:30 Additional Lab and Data: Lab Results 11/12/16 11/12/16 11/12/16 Range/Units 23:40 23:40 23:40 WBC 13.4 H (3.5-10.8) 10^3/ul RBC 4.14 (4.0-5.4) 10^6/ul Hgb 12.9 L (14.0-18.0) g/dl Hct 39 L (42-52) % MCV 95 H (80-94) fL MCH 31 (27-31) pg MCHC 33 (31-36) g/dl RDW 14 (10.5-15) % Plt Count 152 (150-450) 10^3/ul MPV 8 (7.4-10.4) um3 Neut % (Auto) 76.5 (38-83) % Lymph % (Auto) 13.2 L (25-47) % [place] % (Auto) 9.9 H (1-9) % Eos % (Auto) 0.1 (0-6) % Baso % (Auto) 0.3 (0-2) % Absolute Neuts (auto) 10.2 H (1.5-7.7) 10^3/ul Absolute Lymphs (auto) 1.8 (1.0-4.8) 10^3/ul Absolute Monos (auto) 1.3 H (0-0.8) 10^3/ul Absolute Eos (auto) 0 (0-0.6) 10^3/ul Absolute Basos (auto) 0 (0-0.2) 10^3/ul Absolute Nucleated RBC 0 10^3/ul Nucleated RBC % 0 Sodium 129 L (133-145) mmol/L Potassium 3.9 (3.5-5.0) mmol/L Chloride 96 L (101-111) mmol/L Carbon Dioxide 22 (22-32) mmol/L Anion Gap 11 (2-11) mmol/L BUN 16 (6-24) mg/dL Creatinine 0.96 (0.67-1.17) mg/dL Est GFR ( Amer) 96.9 (>60) Est GFR (Non-Af Amer) 75.4 (>60) BUN/Creatinine Ratio 16.7 (8-20) Glucose 208 H (70-100) mg/dL Lactic Acid 2.9 H* (0.5-2.0) mmol/L Calcium 8.5 L (8.6-10.3) mg/dL Total Bilirubin 1.20 H (0.2-1.0) mg/dL AST 15 (13-39) U/L ALT 7 (7-52) U/L Alkaline Phosphatase 61 (34-104) U/L Total Creatine Kinase 74 (10-223) U/L CK-MB (CK-2) 3.7 (0.6-6.3) ng/mL Myoglobin 65.7 (17.4-105.7) ng/mL Troponin I Pending C-Reactive Protein 136.50 H (< 5.00) mg/L Total Protein 7.4 (6.4-8.9) g/dL Albumin 3.6 (3.2-5.2) g/dL Globulin 3.8 (2-4) g/dL Albumin/Globulin Ratio 0.9 L (1-3) Microbiology and Other Data: Microbiology 11/13/16 02:40 Legionella Urinary Antigen - Final Urine Negative Legionella Streptococcus pneumoniae Ag Screen - Final Negative S. pneumo Antigen 11/13/16 06:15 Gram Stain - Final Sputum Expectorated 11/13/16 02:47 Nasal Screen MRSA (PCR)(BORIS) - Final Nasal Mrsa Negative Assess/Plan/Problems-Billing Assessment: 81 yo M with h/o CAD(2 stents at [facility] 8 yrs ago), COPD( on 02 at 3 L), smoking (2 PPD x 64 years), d/o carotid endarectomy, DM2 presented with respiratory distress requiring BIPAP initially - Patient Problems (1) CHF (congestive heart failure) Comment: EF 20-25% Med records from cardiology at [facility] requested Appears euvolemic today. Cont Lasix PO 40 mg (home dose) appreciate cardiology consult. (2) Bronchitis Comment: Very purulent sputum, CTA positive for mucus plugging Cont Azithro/Ceftiraxone Legionella/Strep pneumo antigen neg Sputum cx pending (3) NSTEMI (non-ST elevated myocardial infarction) Comment: precipitated by CHF and bronchitis Troponin still raising Pt denies CP Heparin gtt discontinued by cardiology due to hematuria Cont ASA/Plavix/BB/statin. Pt is not interested in cath, considering ICD. (4) Hematuria Comment: ? post traumatic due to Clark? Clark discontinued, Renal US and UA pending (5) COPD (chronic obstructive pulmonary disease) Comment: not in exacerbation back to home 02 requirements at 3 L smoking cessation encouraged, nicotine replacement tx ordered (6) DM2 (diabetes mellitus, type 2) Comment: metformin held cont ISS (7) Adrenal adenoma Comment: incidental finding on CTA(neg for PE) Recommended further evaluation as outpatient (8) DVT prophylaxis Comment: SCD's Anticoagulation stopped due to hematuria Status and Disposition: Inpatient
--- NOTE | 2016-11-13 15:08 | RAD ---
Indication: Hematuria. Real-time sonography of the kidneys was performed. Right kidney measures 9.1 x 4.2 x 6.1 cm. Left kidney measures 9.1 x 5.6 x 5.7 cm. No hydronephrosis is noted in either kidney. IMPRESSION: No hydronephrosis is noted in either kidney.
[2016-11-13] MEDS: Atorvastatin* 40 MG TAB PO SCH (16:22)
[2016-11-13] MEDS: Nicotine Patch Removal NOTE FOLLOW UP SCH (20:43)
[2016-11-13] MEDS ORDERED: Levofloxacin 750 MG IVPREMIX(* 750 MG/150 ML BAG IVPB SCH (23:00)
[2016-11-14 06:04] LABS: Hematocrit 38 % (42-52); Hemoglobin 12.9 g/dl (14.0-18.0); Mean Corpuscular HGB Conc 34 g/dl (31-36); Mean Corpuscular Hemoglobin 32 pg (27-31); Mean Corpuscular Volume 95 fL (80-94); Mean Platelet Volume 8 um3 (7.4-10.4); Red Blood Count 4.03 10^6/ul (4.0-5.4); Red Cell Distribution Width 14 % (10.5-15); White Blood Count 9.5 10^3/ul (3.5-10.8)
[2016-11-14 06:20] LABS: Calcium 8.7 mg/dL (8.6-10.3); EGFR African American 87.4 (>60); HDL Cholesterol 32.7 mg/dL; Magnesium 1.5 mg/dL (1.9-2.7)
[2016-11-14] MEDS: Tiotropium CAP.INH* CAP.INH/18 MCG INH SCH (08:16)
--- NOTE | 2016-11-14 08:32 | PN ---
Subjective Date of Service: 11/14/16 Interval History: f/u CHF, type 2 OK no chest or arm pain breathing back near baseline no lightheadedness still significant productive cough awaiting records hematuria reportedly resolved off heparin gtt not interested in wearing a lifevest tele SR, PVC's, brief atrial tachyarrhythmia Medications Active Medications: Acetaminophen (Tylenol Tab*) 650 mg PO Q4H PRN PRN Reason: FEVER/PAIN Aspirin (Aspirin Ec Low Dose*) 81 mg PO DAILY [facility] Atorvastatin Calcium (Lipitor*) 40 mg PO 1700 [facility] Last Admin: 11/13/16 16:22 Dose: 40 mg Clopidogrel Bisulfate (Plavix Tab*) 75 mg PO DAILY [facility] Device (Nicotine Mouth Piece*) 1 each INH .USE WITH NICOTROL PRN PRN Reason: CRAVING Last Admin: 11/13/16 13:41 Dose: 1 each Dextrose (D50w Syringe 50 Ml*) 12.5 gm IV PUSH .FOR FS < 60 - SS PRN PRN Reason: FS < 60 Furosemide (Lasix Tab*) 40 mg PO DAILY [facility] Last Admin: 11/13/16 07:49 Dose: 40 mg Ceftriaxone Sodium 1,000 mg/ (Sodium Chloride) 50 mls @ 200 mls/hr IVPB Q24H [facility] Last Admin: 11/13/16 14:08 Dose: 200 mls/hr Azithromycin 500 mg/ Sodium (Chloride) 250 mls @ 250 mls/hr IVPB Q24H [facility] Last Admin: 11/13/16 14:28 Dose: 250 mls/hr Magnesium Sulfate (Magnesium Sulf 4 Gm/100 Ml Iv*) 4,000 mg in 100 mls @ 33.333 mls/hr IVPB ONCE ONE Stop: 11/14/16 11:17 Insulin Human Lispro (Humalog*) 0 units SUBCUT ACHS [facility] PRN Reason: Protocol Last Admin: 11/13/16 20:42 Dose: Not Given Lisinopril (Prinivil Tab*) 2.5 mg PO DAILY [facility] Metoprolol Succinate (Toprol Xl Tab*) 25 mg PO DAILY [facility] Last Admin: 11/13/16 09:04 Dose: 25 mg Nicotine (Nicotine Patch 21 Mg/24 Hr*) 1 patch TRANSDERM DAILY [facility] Last Admin: 11/13/16 13:41 Dose: 1 patch Nicotine (Nicotine Inhaler*) 10 mg INH Q2H PRN PRN Reason: CRAVING Last Admin: 11/13/16 13:41 Dose: 10 mg Ondansetron HCl (Zofran Inj*) 4 mg IV Q4H PRN PRN Reason: NAUSEA Last Admin: 11/13/16 14:59 Dose: 4 mg Pharmacy Profile Note (Nicotine Patch Removal Note*) 1 note FOLLOW UP 2100 [facility] Last Admin: 11/13/16 20:43 Dose: 1 note Tiotropium [place] (Spiriva Cap.Inh*) 1 cap INH DAILY [facility] Last Admin: 11/14/16 08:16 Dose: 1 cap Objective Vital Signs: Temp Pulse Resp BP Pulse Ox 98.5 F 72 15 99/47 100 11/14/16 07:54 11/14/16 08:00 11/14/16 08:00 11/14/16 08:00 11/14/16 08:18 Oxygen Devices in Use Now: Nasal Cannula - at 3 L Appearance: frail, nad, pleasant Ears/Nose/Mouth/Throat: Clear Oropharnyx, Mucous Membranes Moist Neck: Trachea Midline, - - uncertain jvp Respiratory: Symmetrical Chest Expansion and Respiratory Effort - scattered rhonchi Cardiovascular: RRR, No Edema, - - distant heart sounds, no significnat murmur Abdominal: NL Sounds; No Tenderness; No Distention Extremities: No Edema Skin: No Nodules or Sclerosis Neurological: Alert and Oriented x 3, - - some evidence of short term memory loss Laboratory Results: 11/14/16 05:49 11/14/16 05:49 INR (Anticoag Therapy) 1.12 (0.89-1.11) H 11/12/16 23:40 APTT 62.4 seconds (26.0-36.3) H 11/13/16 12:25 Total Bilirubin 1.20 mg/dL (0.2-1.0) H 11/12/16 23:40 AST 15 U/L (13-39) 11/12/16 23:40 ALT 7 U/L (7-52) 11/12/16 23:40 Alkaline Phosphatase 61 U/L (34-104) 11/12/16 23:40 CK-MB (CK-2) 57.9 ng/mL (0.6-6.3) H 11/13/16 12:25 B-Natriuretic Peptide 1101 pg/mL (-100) H 11/12/16 23:40 Total Protein 7.4 g/dL (6.4-8.9) 11/12/16 23:40 Albumin 3.6 g/dL (3.2-5.2) 11/12/16 23:40 Globulin 3.8 g/dL (2-4) 11/12/16 23:40 Albumin/Globulin Ratio 0.9 (1-3) L 11/12/16 23:40 Triglycerides 82 mg/dL 11/14/16 05:49 Cholesterol 115 mg/dL 11/14/16 05:49 LDL Cholesterol 66 mg/dL 11/14/16 05:49 HDL Cholesterol 32.7 mg/dL 11/14/16 05:49 mg 1.5 11/13/16 11/13/16 11/13/16 03:30 06:30 12:25 Troponin I 2.57 H* 7.06 H* 10.60 H* 11/13/16 16:30 Troponin I 8.32 H* Diagnostic Imaging: TTE 11/13/2016: Mildly dilated LV with LVEF 20-25%, multiple WMA, at least mild , mild-mod TR with mild pHTN CTA 11/13/2016: No PE, + emphysema, exposure to granulomatous disease, mucuous plunng LLL EKG Data: EKG 11/12/2016: sinus tachycardia, old anteroseptal OK, PVC, anterolateral TW inversions that appears new from 06/200811/13/2016: NSR, PVC, old anteroseptal OK, LVH with repolarization vs. ischemic ST depression anterolateral leads Assessment/Plan 81 year old man with ongoing tobacco use, severe diffuse vascular disease including b/l carotid endarterectomy, multiple MIs s/p PCI, heart failure, ongoing tobacco use, COPD on oxygen presents with pneumonia/COPD exacerbation associated with a type 2 acute OK and CHF exacerbation, LVEF 20-25%. Has hematuria on heparin gtt now resolved when stopped. - See original consult for full details. - Continue aspirin 81 mg po daily - Continue plavix 75 mg po daily. - Continue toprol 25 mg PO daily, - Continue lisinopril, decrease to 2.5 mg PO daily given asymptomatic low BP, requested BP check other arm in case related to PAD - Continue lasix 40 mg PO daily - BP has been too low for aldactone - Continue atorvastatin 40 mg po daily, lipid panel noted - Replace magnesium IV (ordered) - Nicotine patch and inhalers being used, patient counseled on smoking cessation - Antibiotics and other treatment treatment per primary service - Ok to transfer to tele from a cardiac standpoint Thank you for allowing me to participate in the cardiovascular care of this patient. Please do not hesitate to contact me with questions or concerns.
[2016-11-14] MEDS: Insulin LISPRO* 1 UNITS UNIT SUBCUT SCH ×4 (08:34→20:46)
[2016-11-14] MEDS: Metoprolol Succinate XL TAB* 25 MG PO SCH (08:42)
[2016-11-14] MEDS: Aspirin EC Low Dose* 81 MG TAB.EC PO SCH (08:42)
[2016-11-14] MEDS: Clopidogrel TAB* 75 MG PO SCH (08:43)
[2016-11-14] MEDS: Furosemide TAB* 20 MG PO SCH (08:43)
[2016-11-14] MEDS: Lisinopril TAB* 5 MG PO SCH (08:43)
[2016-11-14] MEDS ORDERED: Magnesium Sulf 4 GM/100 ML IV* 4,000 MG/100 ML BAG IVPB ONE (08:45)
[2016-11-14] MEDS: Nicotine PATCH 21 MG/24 HR* PATCH TRANSDERM SCH (08:46)
--- NOTE | 2016-11-14 09:38 | PN ---
Subjective Date of Service: 11/14/16 Interval History: Pt feels well, still coughing up purulent sputum, hematuria resolved.Poor historian Objective Active Medications: Acetaminophen (Tylenol Tab*) 650 mg PO Q4H PRN PRN Reason: FEVER/PAIN Aspirin (Aspirin Ec Low Dose*) 81 mg PO DAILY [facility] Last Admin: 11/14/16 08:42 Dose: 81 mg Atorvastatin Calcium (Lipitor*) 40 mg PO 1700 [facility] Last Admin: 11/13/16 16:22 Dose: 40 mg Clopidogrel Bisulfate (Plavix Tab*) 75 mg PO DAILY [facility] Last Admin: 11/14/16 08:43 Dose: 75 mg Device (Nicotine Mouth Piece*) 1 each INH .USE WITH NICOTROL PRN PRN Reason: CRAVING Last Admin: 11/13/16 13:41 Dose: 1 each Dextrose (D50w Syringe 50 Ml*) 12.5 gm IV PUSH .FOR FS < 60 - SS PRN PRN Reason: FS < 60 Furosemide (Lasix Tab*) 40 mg PO DAILY [facility] Last Admin: 11/14/16 08:43 Dose: 40 mg Ceftriaxone Sodium 1,000 mg/ (Sodium Chloride) 50 mls @ 200 mls/hr IVPB Q24H [facility] Last Admin: 11/13/16 14:08 Dose: 200 mls/hr Azithromycin 500 mg/ Sodium (Chloride) 250 mls @ 250 mls/hr IVPB Q24H [facility] Last Admin: 11/13/16 14:28 Dose: 250 mls/hr Magnesium Sulfate (Magnesium Sulf 4 Gm/100 Ml Iv*) 4,000 mg in 100 mls @ 33.333 mls/hr IVPB ONCE ONE Stop: 11/14/16 11:44 Last Admin: 11/14/16 09:02 Dose: 33.333 mls/hr Insulin Human Lispro (Humalog*) 0 units SUBCUT ACHS [facility] PRN Reason: Protocol Last Admin: 11/14/16 08:34 Dose: Not Given Lisinopril (Prinivil Tab*) 2.5 mg PO DAILY [facility] Last Admin: 11/14/16 08:43 Dose: 2.5 mg Metoprolol Succinate (Toprol Xl Tab*) 25 mg PO DAILY [facility] Last Admin: 11/14/16 08:42 Dose: 25 mg Nicotine (Nicotine Patch 21 Mg/24 Hr*) 1 patch TRANSDERM DAILY [facility] Last Admin: 11/14/16 08:46 Dose: 1 patch Nicotine (Nicotine Inhaler*) 10 mg INH Q2H PRN PRN Reason: CRAVING Last Admin: 11/13/16 13:41 Dose: 10 mg Ondansetron HCl (Zofran Inj*) 4 mg IV Q4H PRN PRN Reason: NAUSEA Last Admin: 11/13/16 14:59 Dose: 4 mg Pharmacy Profile Note (Nicotine Patch Removal Note*) 1 note FOLLOW UP 2100 [facility] Last Admin: 11/13/16 20:43 Dose: 1 note Tiotropium [place] (Spiriva Cap.Inh*) 1 cap INH DAILY [facility] Last Admin: 11/14/16 08:16 Dose: 1 cap Vital Signs 11/13/16 11/13/16 11/13/16 10:00 10:29 11:00 Temperature 98.8 F 98.4 F Pulse Rate 84 77 Respiratory 22 18 18 Rate Blood Pressure 102/68 91/44 (mmHg) O2 Sat by Pulse 97 98 Oximetry 11/13/16 11/13/16 11/13/16 12:00 12:32 13:00 Temperature 98.6 F Pulse Rate 77 82 Respiratory 18 22 Rate Blood Pressure 105/65 97/67 (mmHg) O2 Sat by Pulse 99 94 Oximetry 11/13/16 11/13/16 11/13/16 13:03 13:41 14:00 Temperature Pulse Rate 77 Respiratory 18 20 20 Rate Blood Pressure 98/79 (mmHg) O2 Sat by Pulse 96 Oximetry 11/13/16 11/13/16 11/13/16 15:00 15:35 15:55 Temperature Pulse Rate 86 Respiratory 23 15 18 Rate Blood Pressure 97/42 (mmHg) O2 Sat by Pulse 97 Oximetry 11/13/16 11/13/16 11/13/16 16:00 16:34 17:00 Temperature Pulse Rate 79 73 Respiratory 21 15 18 Rate Blood Pressure 88/50 82/42 (mmHg) O2 Sat by Pulse 98 98 Oximetry 11/13/16 11/13/16 11/13/16 18:00 18:01 18:17 Temperature Pulse Rate 82 82 Respiratory 20 22 20 Rate Blood Pressure 108/58 (mmHg) O2 Sat by Pulse 97 97 Oximetry 11/13/16 11/13/16 11/13/16 19:00 19:33 19:52 Temperature 98.3 F Pulse Rate 75 74 Respiratory 23 19 Rate Blood Pressure 85/45 101/60 (mmHg) O2 Sat by Pulse 96 93 Oximetry 11/13/16 11/13/16 11/13/16 20:00 20:08 20:22 Temperature Pulse Rate 85 74 Respiratory 23 19 Rate Blood Pressure 80/38 (mmHg) O2 Sat by Pulse 95 99 92 Oximetry 11/13/16 11/13/16 11/13/16 20:44 21:00 21:30 Temperature Pulse Rate 72 74 Respiratory 19 19 Rate Blood Pressure 81/41 83/41 83/41 (mmHg) O2 Sat by Pulse 99 100 Oximetry 11/13/16 11/13/16 11/13/16 22:00 22:26 22:30 Temperature Pulse Rate 65 68 74 Respiratory 16 19 18 Rate Blood Pressure 81/43 92/52 (mmHg) O2 Sat by Pulse 100 99 99 Oximetry 11/13/16 11/13/16 11/13/16 23:00 23:30 23:44 Temperature 98.5 F Pulse Rate 70 67 Respiratory 18 16 Rate Blood Pressure 94/38 106/66 (mmHg) O2 Sat by Pulse 98 97 Oximetry 11/14/16 11/14/16 11/14/16 00:00 00:01 00:30 Temperature Pulse Rate 70 70 68 Respiratory 18 19 18 Rate Blood Pressure 97/44 (mmHg) O2 Sat by Pulse 98 99 98 Oximetry 11/14/16 11/14/16 11/14/16 00:33 01:00 01:30 Temperature Pulse Rate 67 66 66 Respiratory 19 14 16 Rate Blood Pressure 95/59 93/51 104/76 (mmHg) O2 Sat by Pulse 98 99 98 Oximetry 11/14/16 11/14/16 11/14/16 02:00 02:30 03:00 Temperature Pulse Rate 83 78 72 Respiratory 21 20 17 Rate Blood Pressure 114/53 100/51 96/51 (mmHg) O2 Sat by Pulse 96 99 99 Oximetry 11/14/16 11/14/16 11/14/16 03:30 04:00 04:30 Temperature Pulse Rate 68 64 65 Respiratory 16 14 16 Rate Blood Pressure 86/48 109/44 92/41 (mmHg) O2 Sat by Pulse 100 100 100 Oximetry 11/14/16 11/14/16 11/14/16 05:00 05:01 05:30 Temperature Pulse Rate 64 64 Respiratory 14 15 Rate Blood Pressure 95/51 141/79 (mmHg) O2 Sat by Pulse 100 100 Oximetry 11/14/16 11/14/16 11/14/16 05:56 06:00 06:30 Temperature 98.3 F Pulse Rate 79 73 Respiratory 20 20 Rate Blood Pressure 104/83 101/83 (mmHg) O2 Sat by Pulse 93 94 Oximetry 11/14/16 11/14/16 11/14/16 07:00 07:30 07:54 Temperature 98.5 F Pulse Rate 80 77 Respiratory 19 17 Rate Blood Pressure 106/65 107/50 (mmHg) O2 Sat by Pulse 94 94 Oximetry 11/14/16 11/14/16 11/14/16 08:00 08:18 08:30 Temperature Pulse Rate 72 78 Respiratory 15 20 Rate Blood Pressure 99/47 104/53 (mmHg) O2 Sat by Pulse 99 100 95 Oximetry 11/14/16 11/14/16 11/14/16 08:43 08:44 09:00 Temperature Pulse Rate 78 80 79 Respiratory 22 17 20 Rate Blood Pressure 121/57 130/60 123/67 (mmHg) O2 Sat by Pulse 99 99 94 Oximetry Oxygen Devices in Use Now: Nasal Cannula - at 3 L Appearance: 81 yo M in nAd, aAOx3 Eyes: No Scleral Icterus, PERRLA Ears/Nose/Mouth/Throat: NL Teeth, Lips, Gums, Mucous Membranes Moist Neck: NL Appearance and Movements; NL JVP Respiratory: Symmetrical Chest Expansion and Respiratory Effort, - - rhonchi b/ l lower lungs Cardiovascular: NL Sounds; No Murmurs; No JVD, RRR Abdominal: NL Sounds; No Tenderness; No Distention, No Hepatosplenomegaly Lymphatic: No Cervical Adenopathy Extremities: No Edema, No Clubbing, Cyanosis Skin: No Rash or Ulcers, No Nodules or Sclerosis Neurological: Alert and Oriented x 3, NL Muscle Strength and Tone Result Diagrams: 11/14/16 05:49 11/14/16 05:49 Additional Lab and Data: Lab Results 11/12/16 11/12/16 11/12/16 Range/Units 23:40 23:40 23:40 WBC 13.4 H (3.5-10.8) 10^3/ul RBC 4.14 (4.0-5.4) 10^6/ul Hgb 12.9 L (14.0-18.0) g/dl Hct 39 L (42-52) % MCV 95 H (80-94) fL MCH 31 (27-31) pg MCHC 33 (31-36) g/dl RDW 14 (10.5-15) % Plt Count 152 (150-450) 10^3/ul MPV 8 (7.4-10.4) um3 Neut % (Auto) 76.5 (38-83) % Lymph % (Auto) 13.2 L (25-47) % [place] % (Auto) 9.9 H (1-9) % Eos % (Auto) 0.1 (0-6) % Baso % (Auto) 0.3 (0-2) % Absolute Neuts (auto) 10.2 H (1.5-7.7) 10^3/ul Absolute Lymphs (auto) 1.8 (1.0-4.8) 10^3/ul Absolute Monos (auto) 1.3 H (0-0.8) 10^3/ul Absolute Eos (auto) 0 (0-0.6) 10^3/ul Absolute Basos (auto) 0 (0-0.2) 10^3/ul Absolute Nucleated RBC 0 10^3/ul Nucleated RBC % 0 Sodium 129 L (133-145) mmol/L Potassium 3.9 (3.5-5.0) mmol/L Chloride 96 L (101-111) mmol/L Carbon Dioxide 22 (22-32) mmol/L Anion Gap 11 (2-11) mmol/L BUN 16 (6-24) mg/dL Creatinine 0.96 (0.67-1.17) mg/dL Est GFR ( Amer) 96.9 (>60) Est GFR (Non-Af Amer) 75.4 (>60) BUN/Creatinine Ratio 16.7 (8-20) Glucose 208 H (70-100) mg/dL Lactic Acid 2.9 H* (0.5-2.0) mmol/L Calcium 8.5 L (8.6-10.3) mg/dL Total Bilirubin 1.20 H (0.2-1.0) mg/dL AST 15 (13-39) U/L ALT 7 (7-52) U/L Alkaline Phosphatase 61 (34-104) U/L Total Creatine Kinase 74 (10-223) U/L CK-MB (CK-2) 3.7 (0.6-6.3) ng/mL Myoglobin 65.7 (17.4-105.7) ng/mL Troponin I Pending C-Reactive Protein 136.50 H (< 5.00) mg/L Total Protein 7.4 (6.4-8.9) g/dL Albumin 3.6 (3.2-5.2) g/dL Globulin 3.8 (2-4) g/dL Albumin/Globulin Ratio 0.9 L (1-3) Microbiology and Other Data: Microbiology 11/13/16 02:40 Legionella Urinary Antigen - Final Urine Negative Legionella Streptococcus pneumoniae Ag Screen - Final Negative S. pneumo Antigen 11/13/16 06:15 Gram Stain - Final Sputum Expectorated 11/13/16 02:47 Nasal Screen MRSA (PCR)(BORIS) - Final Nasal Mrsa Negative Assess/Plan/Problems-Billing Assessment: 81 yo M with h/o CAD(2 stents at [facility] 8 yrs ago), COPD( on 02 at 3 L), smoking (2 PPD x 64 years), d/o carotid endarectomy, DM2 presented with respiratory distress requiring BIPAP initially - Patient Problems (1) CHF (congestive heart failure) Comment: EF 20-25%. cont daily Lasix/BB/ACEI Med records from cardiology at [facility] requested/pending Appears euvolemic today. Cont Lasix PO 40 mg (home dose) appreciate cardiology consult. Pt is not interested in life vest. (2) Bronchitis Comment: Very purulent sputum, CTA positive for mucus plugging Cont Azithro/Ceftiraxone Legionella/Strep pneumo antigen neg Sputum cx pending (3) NSTEMI (non-ST elevated myocardial infarction) Comment: precipitated by CHF and bronchitis Troponin peaked at 10. Pt denies CP Heparin gtt discontinued by cardiology due to hematuria on 11/13/16 Cont ASA/Plavix/BB/statin. Pt is not interested in cath. (4) Hematuria Comment: ? post traumatic due to Clark? Clark discontinued on 11/13/16, Renal US unremarkable (5) COPD (chronic obstructive pulmonary disease) Comment: not in exacerbation back to home 02 requirements at 3 L smoking cessation encouraged, nicotine replacement tx ordered (6) DM2 (diabetes mellitus, type 2) Comment: metformin held cont ISS (7) Adrenal adenoma Comment: incidental finding on CTA(neg for PE) Recommended further evaluation as outpatient (8) Hyponatremia Comment: due to CHF cont to monitor (9) Hypomagnesemia Comment: replacing IV (10) DVT prophylaxis Comment: SCD's Anticoagulation stopped due to hematuria on 11/13/16 will start heparin sc Status and Disposition: Inpatient
[2016-11-14] MEDS: Heparin VIAL(*) 5000 UNITS/ML VIAL (FIVE THOUSAND) SUBCUT SCH ×2 (14:16→20:43)
[2016-11-14] MEDS: cefTRIAXone VIAL(*) 1,000 MG in NS 0.9% 50 ML* 50 ML IVPB SCH (14:16)
[2016-11-14] MEDS: Azithromycin IV(*) 500 MG in NS 0.9% 250 ML* 250 ML IVPB SCH (15:09)
[2016-11-14] MEDS: Atorvastatin* 40 MG TAB PO SCH (17:11)
[2016-11-14] MEDS: Nicotine Patch Removal NOTE FOLLOW UP SCH (20:45)
[2016-11-15] MEDS: Heparin VIAL(*) 5000 UNITS/ML VIAL (FIVE THOUSAND) SUBCUT SCH (06:03)
[2016-11-15 06:05] LABS: Hematocrit 34 % (42-52); Hemoglobin 11.3 g/dl (14.0-18.0); Mean Corpuscular HGB Conc 33 g/dl (31-36); Mean Corpuscular Hemoglobin 31 pg (27-31); Mean Corpuscular Volume 94 fL (80-94); Mean Platelet Volume 8 um3 (7.4-10.4); Red Blood Count 3.59 10^6/ul (4.0-5.4); Red Cell Distribution Width 13 % (10.5-15); White Blood Count 5.8 10^3/ul (3.5-10.8)
[2016-11-15 06:20] LABS: BUN/Creatinine Ratio 20.9 (8-20); EGFR Non-African American 85.6 (>60); Magnesium 1.9 mg/dL (1.9-2.7); Potassium 3.6 mmol/L (3.5-5.0)
[2016-11-15] MEDS: Tiotropium CAP.INH* CAP.INH/18 MCG INH SCH (07:37)
[2016-11-15] MEDS: Aspirin EC Low Dose* 81 MG TAB.EC PO SCH (07:37)
[2016-11-15] MEDS: Clopidogrel TAB* 75 MG PO SCH (07:37)
[2016-11-15] MEDS: Metoprolol Succinate XL TAB* 25 MG PO SCH (07:37)
[2016-11-15] MEDS: Furosemide TAB* 20 MG PO SCH (07:38)
[2016-11-15] MEDS: Lisinopril TAB* 5 MG PO SCH (07:38)
[2016-11-15] MEDS: Insulin LISPRO* 1 UNITS UNIT SUBCUT SCH ×2 (07:39→11:28)
[2016-11-15] MEDS: Nicotine PATCH 21 MG/24 HR* PATCH TRANSDERM SCH (07:42)
[2016-11-15 08:11] VITALS: BP 111/65
[2016-11-15] MEDS ORDERED: Potassium Chlor TAB* 20 MEQ TAB.ER PO ONE (10:21)
[2016-11-15] MEDS ORDERED: Magnesium Sulfate 2 GM IV* 2 GM/50 ML BAG IVPB ONE (10:21)
--- NOTE | 2016-11-15 10:41 | PN ---
Subjective Date of Service: 11/15/16 Interval History: f/u CHF, type 2 LA no chest or arm pain breathing back to baseline no lightheadedness still significant productive cough but at baseline he is not interested in invasive evaluation of cardiac disease, an ICD or wearing a lifevest tele SR, PVC's Medications Active Medications: Acetaminophen (Tylenol Tab*) 650 mg PO Q4H PRN PRN Reason: FEVER/PAIN Aspirin (Aspirin Ec Low Dose*) 81 mg PO DAILY [facility] Last Admin: 11/15/16 07:37 Dose: 81 mg Atorvastatin Calcium (Lipitor*) 40 mg PO 1700 [facility] Last Admin: 11/14/16 17:11 Dose: 40 mg Clopidogrel Bisulfate (Plavix Tab*) 75 mg PO DAILY [facility] Last Admin: 11/15/16 07:37 Dose: 75 mg Device (Nicotine Mouth Piece*) 1 each INH .USE WITH NICOTROL PRN PRN Reason: CRAVING Last Admin: 11/13/16 13:41 Dose: 1 each Dextrose (D50w Syringe 50 Ml*) 12.5 gm IV PUSH .FOR FS < 60 - SS PRN PRN Reason: FS < 60 Furosemide (Lasix Tab*) 40 mg PO DAILY [facility] Last Admin: 11/15/16 07:38 Dose: 40 mg Heparin Sodium (Porcine) (Heparin Vial(*)) 5,000 units SUBCUT Q8HR [facility] Last Admin: 11/15/16 06:03 Dose: 5,000 units Ceftriaxone Sodium 1,000 mg/ (Sodium Chloride) 50 mls @ 200 mls/hr IVPB Q24H [facility] Last Admin: 11/14/16 14:16 Dose: 200 mls/hr Azithromycin 500 mg/ Sodium (Chloride) 250 mls @ 250 mls/hr IVPB Q24H [facility] Last Admin: 11/14/16 15:09 Dose: 250 mls/hr Insulin Human Lispro (Humalog*) 0 units SUBCUT ACHS [facility] PRN Reason: Protocol Last Admin: 11/15/16 07:39 Dose: Not Given Lisinopril (Prinivil Tab*) 2.5 mg PO DAILY [facility] Last Admin: 11/15/16 07:38 Dose: 2.5 mg Metoprolol Succinate (Toprol Xl Tab*) 25 mg PO DAILY [facility] Last Admin: 11/15/16 07:37 Dose: 25 mg Nicotine (Nicotine Patch 21 Mg/24 Hr*) 1 patch TRANSDERM DAILY [facility] Last Admin: 11/15/16 07:42 Dose: 1 patch Nicotine (Nicotine Inhaler*) 10 mg INH Q2H PRN PRN Reason: CRAVING Last Admin: 11/13/16 13:41 Dose: 10 mg Ondansetron HCl (Zofran Inj*) 4 mg IV Q4H PRN PRN Reason: NAUSEA Last Admin: 11/13/16 14:59 Dose: 4 mg Pharmacy Profile Note (Nicotine Patch Removal Note*) 1 note FOLLOW UP 2100 [facility] Last Admin: 11/14/16 20:45 Dose: 1 note Tiotropium [place] (Spiriva Cap.Inh*) 1 cap INH DAILY [facility] Last Admin: 11/15/16 07:37 Dose: 1 cap Objective Vital Signs: Temp Pulse Resp BP Pulse Ox 98.0 F 70 19 111/65 96 11/15/16 07:08 11/15/16 07:08 11/15/16 08:00 11/15/16 07:08 11/15/16 08:19 Oxygen Devices in Use Now: Nasal Cannula - at 3 L Appearance: frail, nad, pleasant Ears/Nose/Mouth/Throat: Clear Oropharnyx, Mucous Membranes Moist Neck: Trachea Midline, - - uncertain jvp Respiratory: Symmetrical Chest Expansion and Respiratory Effort - scattered rhonchi Cardiovascular: RRR, No Edema, - - distant heart sounds, no significnat murmur Abdominal: NL Sounds; No Tenderness; No Distention Extremities: No Edema Skin: No Nodules or Sclerosis Neurological: Alert and Oriented x 3, - - some evidence of short term memory loss Laboratory Results: 11/15/16 05:51 11/15/16 05:51 INR (Anticoag Therapy) 1.12 (0.89-1.11) H 11/12/16 23:40 APTT 62.4 seconds (26.0-36.3) H 11/13/16 12:25 Total Bilirubin 1.20 mg/dL (0.2-1.0) H 11/12/16 23:40 AST 15 U/L (13-39) 11/12/16 23:40 ALT 7 U/L (7-52) 11/12/16 23:40 Alkaline Phosphatase 61 U/L (34-104) 11/12/16 23:40 CK-MB (CK-2) 57.9 ng/mL (0.6-6.3) H 11/13/16 12:25 B-Natriuretic Peptide 1101 pg/mL (-100) H 11/12/16 23:40 Total Protein 7.4 g/dL (6.4-8.9) 11/12/16 23:40 Albumin 3.6 g/dL (3.2-5.2) 11/12/16 23:40 Globulin 3.8 g/dL (2-4) 11/12/16 23:40 Albumin/Globulin Ratio 0.9 (1-3) L 11/12/16 23:40 Triglycerides 82 mg/dL 11/14/16 05:49 Cholesterol 115 mg/dL 11/14/16 05:49 LDL Cholesterol 66 mg/dL 11/14/16 05:49 HDL Cholesterol 32.7 mg/dL 11/14/16 05:49 11/13/16 11/13/16 11/13/16 03:30 06:30 12:25 Troponin I 2.57 H* 7.06 H* 10.60 H* 11/13/16 16:30 Troponin I 8.32 H* Diagnostic Imaging: TTE 11/13/2016: Mildly dilated LV with LVEF 20-25%, multiple WMA, at least mild , mild-mod TR with mild pHTN CTA 11/13/2016: No PE, + emphysema, exposure to granulomatous disease, mucuous plunng LLL EKG Data: EKG 11/12/2016: sinus tachycardia, old anteroseptal LA, PVC, anterolateral TW inversions that appears new from 06/200811/13/2016: NSR, PVC, old anteroseptal LA, LVH with repolarization vs. ischemic ST depression anterolateral leads Assessment/Plan 81 year old man with ongoing tobacco use, severe diffuse vascular disease including b/l carotid endarterectomy, multiple MIs s/p PCI, heart failure, ongoing tobacco use, COPD on oxygen presents with pneumonia/COPD exacerbation associated with a type 2 acute LA and CHF exacerbation, LVEF 20-25% now symptomatically back to baseline with treatment of respiratory issues/ antibiotics and treatment of LA and CHF. - Continue aspirin 81 mg po daily - Continue plavix 75 mg po daily. - Continue toprol 25 mg PO daily, - Continue lisinopril 2.5 mg PO daily - Continue lasix 40 mg PO daily - Continue atorvastatin 40 mg po daily, lipid panel noted - BP has been too low for aldactone - Replace magnesium IV (ordered) and potassium (ordered) - Nicotine patch and inhalers being used, patient counseled on smoking cessation - Antibiotics and other treatment per primary service - Ok to to discharge from a cardiac standpoint. He understands that his severe cardiac disease places him at risk of sudden . He should should follow up with his lingo cleaner Dr. Urias within a week or two Thank you for allowing me to participate in the cardiovascular care of this patient. Please do not hesitate to contact me with questions or concerns.
--- NOTE | 2016-11-16 15:48 | DS ---
CC: Dr. Bynum; Dr. Weller; Dr. Collins; Dr. Urias from Cardiology in [place] * DISCHARGE SUMMARY: DATE OF ADMISSION: 11/13/16 DATE OF DISCHARGE: 11/15/16 PRIMARY CARE PROVIDER: Dr. Bynum. DISCHARGE DIAGNOSES: 1. Non-ST elevation myocardial infarction with troponin peaked at 10 on . 2. Congestive heart failure, acute systolic. 3. Acute purulent bronchitis with mucus plugs noted on CT angiogram of the lungs with sputum positive for Haemophilus parainfluenzae. 4. Hyponatremia due to congestive heart failure. 5. Incidentally found on CT angiogram adrenal adenoma. SECONDARY DIAGNOSES: 1. Chronic obstructive pulmonary disease, oxygen dependent at 3 L. The patient still smokes. 2. History of myocardial infarction, had a proximal stent placed at [facility] in [place], [place]. 3. History of diabetes type 2. 4. Tobacco abuse. 5. History of bilateral carotid endarterectomies. 6. History of peripheral vascular disease with aortofemoral stents in the past. 7. History of monoclonal gammopathy under the care and evaluation of Dr. Weller. MEDICATIONS AT DISCHARGE: Include: 1. Oxygen continuously at 3 L as previously used. The patient is strongly advised not to smoke when using oxygen. 2. Aspirin 81 mg daily. 3. Lipitor 40 mg daily. 4. Azithromycin 250 mg for a total of 4 days, then stop. 5. Cefdinir 200 mg 3 times a day for 6 days total. 6. Plavix 75 mg daily. 7. Furosemide 40 mg daily. 8. Lisinopril 2.5 mg daily. 9. Metformin ER 500 mg daily. 10. Metoprolol succinate 25 mg daily. 11. Nitroglycerin 2% ointment daily. 12. Spiriva 1 inhalation daily. LABORATORY DATA AND STUDIES PERFORMED DURING THE HOSPITAL STAY: Included: On 11/15/16, sodium of 127, potassium 3.6, chloride 93, carbon dioxide 31, BUN 18, and creatinine 0.86. Magnesium was 1.9. CBC obtained on 11/15/16 showed white blood cell count of 5.8, hemoglobin 11.3, hematocrit 34, and platelets 140. The patient's procalcitonin level was 0.8. The patient's total cholesterol was 815, LDL of 66, triglycerides of 82, and HDL of 32. Brain natriuretic peptide at admission was 1101. C-reactive protein was 136 on admission. Renal ultrasound obtained due to hematuria that occurred while on heparin drip showed no hydronephrosis of either kidney. CT angiogram of the chest obtained on 11/13/16, impression: "No pulmonary arterial filling defects to suggest pulmonary emboli, emphysema, evidence of positive granulomatous disease. Findings suggestive of mucus plugging to the segmental airways of the left lower lobe. A 1.3 cm showed axis left hilar lymph node atherosclerosis. Left adrenal adenoma." Transthoracic echocardiogram obtained on 11/13/16 showed EF of 20% to 25%. There was mild aortic stenosis that may be significantly underestimated in severity and low EF. There was mild to moderate tricuspid regurgitation and evidence of mild pulmonary hypertension. CONSULTATIONS DURING THE HOSPITAL STAY: Included Dr. Pedro Collins from Cardiology. HOSPITALIZATION COURSE: Mr. Matthew is an 81-year-old male with a history of COPD who still smokes despite being on continuous oxygen at home who also has history of carotid disease and medical noncompliance. He presented to the hospital in respiratory distress. Originally, he will be placed on BiPAP and placed in the intensive care unit. He was diagnosed with CHF and non-ST elevation [place]. He also was noted to have very purulent sputum which eventually grew Haemophilus parainfluenzae. Mucus plugging was noted on CT angiogram of the chest and the patient was placed on ceftriaxone and azithromycin. In regards to the patient's non-ST elevation [place] it was felt to be mostly to demand related issues due to CHF and bronchitis. The patient's troponin peaked at 10. He no longer complained of chest pain throughout his hospital stay. He was originally placed on heparin drip, but he developed hematuria and the heparin drip was discontinued. He was continued on aspirin and Plavix. Lipitor was started as a statin. The patient also was placed on a low-dose of beta-delon and due to that his lisinopril dose was lowered at discharge. The patient was noted to have an EF of 20% to 25%. Dr. Collins saw the patient in consultation and had discussions in regards to possibility of ICD placement or temporarily use of LifeVest and further management of possibility of cardiac catheterization. The patient was not really interested in either of those measures. The patient does have a utility manager that he had been following up with for years at [facility] and with whom he wants to followup after discharge. By the time of discharge, with the use of antibiotics and diuretics, the patient 's status markedly improved, although he still continues to cough purulent sputum at discharge. The patient's CT angiogram was noted to have incidental adrenal adenoma for which the patient was recommended to have a followup with his primary care provider for further workup. At discharge, the patient is strongly recommended to stop smoking, especially that he is oxygen dependent and it is life-threatening to smoke with oxygen. The patient at that point was somewhat argumentative and stated that the oxygen that he is receiving from the concentrator is not flammable as the oxygen from oxygen tanks that "other people use." Nevertheless, he would consider stopping smoking in the near future. In regards to the patient's laboratory values; on evaluation the patient was noted to have mild hyponatremia at admission at 129, then after the use of Lasix his hyponatremia actually was at 129 and later on improved. I believe the hyponatremia is related to CHF and will slowly improve after discharge. At discharge, the patient is recommended to follow up with the primary care provider. He actually has an appointment with his primary care provider on which he is advised to keep. The patient is also recommended to follow up with his utility manager at [facility], Dr. Urias. The patient is also recommended to follow up with Dr. Weller as previously scheduled. PHYSICAL EXAM AT THE TIME OF DISCHARGE: Blood pressure of 111/65, heart rate of 70 and regular, respiratory rate of 20, oxygen saturation 97% on 3 L of oxygen and nasal cannula, temperature 98.0. General: The patient is a very pleasant 81-year- old male who is in no acute distress. The patient is alert and awake and oriented x3. HEENT: Head atraumatic and normocephalic. Eyes; Pupils are equal, round, and reactive to light and accommodation. Oropharynx clear. Mucosa moist. Neck: Supple. No JVD, no bruits bilaterally. Cardiovascular: Regular, rate, and rhythm. No murmur. Respiratory: Clear to auscultation bilaterally with bibasilar rhonchi. Abdomen: Soft and nontender. Bowel sounds present in all 4 quadrants. Extremities: There is no edema. Pulses are +2 bilaterally. No clubbing or cyanosis. On evaluation of the skin ; no ecchymotic areas or rashes noted. Neuro evaluation: Speech clear. Cranial nerves II through XII grossly intact. Motor strength is 5/5 bilaterally. Please note that this is a short summary of the patient's hospitalization, please refer to further medical records for details. TIME SPENT: Approximately 40 minutes was spent on the patient's discharge. [id number]/[facility] #: [id number] MTDD
== END 2016-11-15 15:30 | disposition home or self-care (01) | DRG 280 ==
LOC: ED 23:33 → ICU 11-13 01:19 → MEDTELE 11-14 08:47
PROVIDERS: ADMIT Internal Medicine; ATTEND Internal Medicine
DX: I21.4 Non-ST elevation (NSTEMI) myocardial infarction (principal); I50.23 Acute on chronic systolic (congestive) heart failure; E87.1 Hypo-osmolality and hyponatremia; J44.0 Chronic obstructive pulmonary disease with (acute) lower respiratory infection; I27.2 Other secondary pulmonary hypertension; E83.42 Hypomagnesemia; Z99.81 Dependence on supplemental oxygen; E11.9 Type 2 diabetes mellitus without complications; I25.10 Atherosclerotic heart disease of native coronary artery without angina pectoris; F17.210 Nicotine dependence, cigarettes, uncomplicated; Z66 Do not resuscitate; J40 Bronchitis, not specified as acute or chronic; I11.0 Hypertensive heart disease with heart failure; R40.2412 Glasgow coma scale score 13-15, at arrival to emergency department; R31.9 Hematuria, unspecified; D35.00 Benign neoplasm of unspecified adrenal gland; I25.5 Ischemic cardiomyopathy; D47.2 Monoclonal gammopathy; I08.2 Rheumatic disorders of both aortic and tricuspid valves; I77.89 Other specified disorders of arteries and arterioles; B96.89 Other specified bacterial agents as the cause of diseases classified elsewhere; T45.515A Adverse effect of anticoagulants, initial encounter; I25.2 Old myocardial infarction; Z95.5 Presence of coronary angioplasty implant and graft; Z88.1 Allergy status to other antibiotic agents; Z88.0 Allergy status to penicillin; Z79.82 Long term (current) use of aspirin; Z79.02 Long term (current) use of antithrombotics/antiplatelets; Z79.84 Long term (current) use of oral hypoglycemic drugs; Z91.19 Patient's noncompliance with other medical treatment and regimen
CPT/HCPCS: 36415; 71010; 71250; 71275; 76775; 77075; 80048; 80053; 80061; 81003; 81015; 82550; 82553; 82565; 82803; 82947; 83605; 83735; 83874; 83880; 84145; 84484; 84520; 85025; 85027; 85379; 85610; 85730; 86140; 87040; 87070; 87077; 87086; 87205; 87641; 87899; 93005; 93306; 94640; 94660; 94760; 99406; A9270-GY; C8929; J0456; J0696; J1644; J1940; J2270; J2405; Q9967

== ENCOUNTER 2017-03-12 05:03 | Inpatient (IN) | payer MEDICARE, BC ==
[2017-03-12] MEDS ORDERED: Albuterol/Ipratropium NEB.SOL* Albuterol 2.5 MG/Ipratropium 0.5 MG 3 ML ONE (05:09)
[2017-03-12] MEDS ORDERED: methylPREDNISolone 125 MG* 2 ML VIAL IV ONE (05:10)
[2017-03-12] MEDS ORDERED: Albuterol/Ipratropium NEB.SOL* Albuterol 2.5 MG/Ipratropium 0.5 MG 3 ML INH ONE ×2 (05:10→05:12)
[2017-03-12] MEDS ORDERED: Magnesium Sulfate 2 GM IV* 2 GM/50 ML BAG IVPB ONE (05:10)
[2017-03-12] MEDS ORDERED: Levofloxacin 750 MG IVPREMIX(* 750 MG/150 ML BAG IVPB ONE (05:13)
[2017-03-12] MEDS ORDERED: Furosemide IV* 10 MG/ML VIAL (40 MG) IV ONE (05:26)
[2017-03-12 05:27] LABS: Hematocrit 42 % (42-52); Hemoglobin 13.7 g/dl (14.0-18.0); Mean Corpuscular HGB Conc 33 g/dl (31-36); Mean Corpuscular Hemoglobin 32 pg (27-31); Mean Corpuscular Volume 96 fL (80-94); Mean Platelet Volume 8 um3 (7.4-10.4); Red Blood Count 4.34 10^6/ul (4.0-5.4); Red Cell Distribution Width 14 % (10.5-15)
[2017-03-12 05:43] LABS: Albumin 3.9 g/dL (3.2-5.2); BUN/Creatinine Ratio 12.2 (8-20); C Reactive Protein 1.16 mg/L (< 5.00); Calcium 9.2 mg/dL (8.6-10.3); EGFR African American 78.7 (>60); EGFR Non-African American 61.2 (>60); Globulin 3.6 g/dL (2-4); Potassium 3.8 mmol/L (3.5-5.0); Total Bilirubin 0.6 mg/dL (0.2-1.0); Total Protein 7.5 g/dL (6.4-8.9)
[2017-03-12 05:45] LABS: BIPAP y; EPAP 8; FIO2 50; IPAP 18; Resp Rate 12
[2017-03-12 05:54] LABS: PCO2 Arterial 43 mmHg (35-45)
[2017-03-12 06:29] LABS: Troponin I 0.05 ng/mL (<0.04)
[2017-03-12] MEDS ORDERED: LORazepam INJ* 2 MG/ML 1 ML VIAL ONE (06:46)
[2017-03-12] MEDS ORDERED: LORazepam INJ* 2 MG/ML 1 ML VIAL IV PUSH ONE (06:49)
--- NOTE | 2017-03-12 07:02 | ED ---
Jenn Anderson Jason, scribed for Micki Hu MD on 03/12/17 at 0508 . Respiratory - HPI Summary HPI Summary: This patient is an 81 year old M BIBA to [facility] with a chief complaint of SOB since 4 days ago, which worsened this morning. The patient rates the pain 0/10 in severity. Symptoms aggravated by nothing. Symptoms alleviated by nothing. Additionally, the patient uses oxygen at home and has a history of COPD. EMT treated pt with albuterol ACTUARIAL ASSISTANT. The Patient stopped taking Lasix 2 days ago, stating that taking the medication made him itch. - History of Current Complaint Stated Complaint: DIFF BREATHING Hx Obtained From: Patient Onset/Duration: Gradual Onset, Lasting Hours, Still Present Character: Dyspnea at Rest Aggravating Factor(s): Nothing Alleviating Factor(s): Nothing Associated Signs and Symptoms: SOB - Allergy/Home Medications Allergies/Adverse Reactions: Allergies Allergy/AdvReac Type Severity Reaction Status Date / Time Amoxicillin Allergy Rash Verified 11/13/16 00:01 Penicillins Allergy Rash Verified 11/13/16 00:01 PMH/Surg Hx/FS Hx/Imm Hx Previously Healthy: No Endocrine/Hematology History: Denies: Hx Diabetes Cardiovascular History: Reports: Hx Cardiac Arrest, Hx Congestive Heart Failure , Hx Hypertension Denies: Hx Peripheral Vascular Disease Respiratory History: Reports: Hx Asthma, Hx Chronic Obstructive Pulmonary Disease (COPD) GI History: Reports: Hx Gastrointestinal Bleed History: Denies: Hx Dialysis, Hx Renal Disease Musculoskeletal History: Denies: Hx Arthritis Sensory History: Denies: Hx Contacts or Glasses, Hx Hearing Aid Opthamlomology History: Denies: Hx Contacts or Glasses Neurological History: Denies: Hx Dementia, Hx Developmental Delay, Hx Headaches, Hx Migraine, Hx Nerve Disease, Hx Seizures, Hx Spinal Cord Injury, Hx Transient Ischemic Attacks (TIA) - Surgical History Surgery Procedure, Year, and Place: cardiac stent. - Family History Known Family History: Negative: Hypertension, Blood Disorder - Social History Alcohol Use: None Substance Use Type: Reports: None Smoking Status (MU): Heavy Every Day Tobacco Smoker Type: Cigarettes Review of Systems Negative: Fever Positive: Shortness Of Breath All Other Systems Reviewed And Are Negative: Yes Physical Exam - Summary Physical Exam Summary: VITAL SIGNS: Reviewed. GENERAL: ~Patient is a well-developed and nourished male who is lying comfortable in the stretcher. Patient is in moderate respiratory distress, excess muscle used for breathing. HEAD AND FACE: No signs of trauma. No ecchymosis, hematomas or skull depressions. No sinus tenderness. EYES: PERRLA, EOMI x 2, No injected conjunctiva, no nystagmus. EARS: Hearing grossly intact. Ear canals and tympanic membranes are within normal limits. MOUTH: Oropharynx within normal limits. NECK: Supple, trachea is midline, no adenopathy, Bilateral JVD 6cm above clavicle, no carotid bruit, no c-spine tenderness, neck with full ROM. CHEST: Symmetric, no tenderness at palpation LUNGS: Tachypnic, decreased breathe sound bilaterally. Bilateral respiratory wheezes. CVS: Regular rate and rhythm, S1 and S2 present, no murmurs or gallops appreciated. ABDOMEN: Soft, non-tender. No signs of distention. No rebound no guarding, and no masses palpated. Bowel sounds are normal. EXTREMITIES: FROM in all major joints, no cyanosis or clubbing. Trace bilateral lower extremity edema. NEURO: Alert and oriented x 3. No acute neurological deficits. Speech is normal and follows commands. SKIN: Dry and warm Triage Information Reviewed: Yes Vital Signs Reviewed: Yes Diagnostics - Laboratory Result Diagrams: 03/12/17 05:15 03/12/17 05:15 Lab Statement: Any lab studies that have been ordered have been reviewed, and results considered in the medical decision making process. - Radiology CXR Radiology Interpretation Completed By: ED Physician - Bilateral interstitial infiltrate consistent with pulmonary edema/CHF. - EKG 0529 Cardiac Rate: Tachycardia EKG Rhythm: Sinus Tachycardia - 109 bpm Ectopy: PVCs EKG Interpretation: LVH, no acute ischemic changes Disposition - Course Course Of Treatment: This patient is an 81 year old M presenting to [facility] with a chief complaint of dyspnea for the past few days and worsened this morning. The patient rates the pain 0/10 in severity. Symptoms aggravated by nothing. Symptoms alleviated by nothing. Additionally, the patient uses oxygen at home and has a history of COPD. EMT treated pt with albuterol ACTUARIAL ASSISTANT. Assessment/Plan: In the ED course the patient was given albuterol and IV fluids. An EKG reveals Sinus Tachycardia at 109 bpm, PVCs, LVH, and no acute ischemic changes. CXR reveals bilateral interstitial infiltrate consistent with pulmonary edema/CHF. We discussed patient care with Dr. Ochoa and he recommended admission. The patient is agreeable with this plan. Dx of COPD and CHF. - Diagnoses Provider Diagnoses: CHF (congestive heart failure), COPD (chronic obstructive pulmonary disease) Discharge - Discharge Plan Condition: Fair Disposition: ADMITTED TO [facility] Referrals: Fletcher SCHMIDT,Erik Roberts [Primary Care Provider] - The documentation as recorded by the Jenn burkett Jason accurately reflects the service I personally performed and the decisions made by , Micki Hu MD.
[2017-03-12] MEDS ORDERED: Ondansetron INJ* 2 MG/ML VIAL IV PRN (07:41)
[2017-03-12] MEDS ORDERED: Acetaminophen TAB* 325 MG PO PRN (07:41)
[2017-03-12] MEDS ORDERED: Dextrose 50% Syringe 50 ML* 25 GM/50 ML SYRINGE IV PUSH PRN (07:42)
[2017-03-12] MEDS ORDERED: Albuterol/Ipratropium NEB.SOL* Albuterol 2.5 MG/Ipratropium 0.5 MG 3 ML INH PRN (07:43)
--- NOTE | 2017-03-12 07:57 | RAD ---
Indication: Shortness of breath. Single frontal view of the chest performed at 0525 hours was reviewed. Comparison is made with previous exam dated November 12, 2016. Cardiomegaly is noted. Hyperinflated lung myrick with interstitial edema is noted. No alveolar consolidation is noted. IMPRESSION: COPD WITH INTERSTITIAL EDEMA CONSISTENT WITH CHF.
[2017-03-12] MEDS: Albuterol 2.5 MG/3 ML NEB.SOL* (0.083%) INH SCH (08:00)
--- NOTE | 2017-03-12 09:43 | HP ---
CC: Dr. Bynum* HISTORY AND PHYSICAL: DATE OF ADMISSION: 03/12/17. TIME OF EVALUATION: 7:30 p.m. PRIMARY CARE PROVIDER: Dr. Bynum. CHIEF COMPLAINT: Shortness of breath. HISTORY OF PRESENT ILLNESS: Mr. Matthew is an 89-year-old male with a past medical history of coronary artery disease, status post stent, non-STEMI in October 2016, systolic CHF, COPD, type 2 diabetes, tobacco abuse, and peripheral vascular disease who presents to the emergency room with complaints of shortness of breath. The patient required BiPAP in the emergency room, and he became anxious so he received Ativan. At the time of this dictation he is sedated. He wakes up when called, and is able to tell me he came in with shortness of breath, but cannot give any more details. As per nursing notes, the patient did not take his furosemide for two days because "it gave him a rash," but this appears to be a long-term medication for this patient as on his last admission in October he was taking furosemide. I am unable to obtain any more history from the patient at this time. PAST MEDICAL HISTORY: 1. COPD, on 3 liters of oxygen at home. 2. Tobacco abuse. 3. CAD, status post stent, and a recent admission in October for non-ST elevation [place]. 4. Systolic CHF with ejection fraction of 20%. 5. Type 2 diabetes. 6. Peripheral vascular disease, status post bilateral carotid enterectomies and aortofemoral stents in the past. 7. History of monoclonal gammopathy, followed by Hematology. MEDICATIONS: Medication list is not available at this time. We are waiting for his pharmacy to open so we can obtain an updated list. ALLERGIES: He developed a rash with PENICILLIN. FAMILY HISTORY: Reviewed and noncontributory. SOCIAL HISTORY: Obtained from his records. The patient is a smoker, one pack a day for 62 years. No history of alcohol or drug use. 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 Surrogate decision maker is his , Bonita Matthew. Phone number is [phone]. REVIEW OF SYSTEMS: I am unable to obtain from the patient at this time. PHYSICAL EXAMINATION GENERAL: The patient is an elderly male, sitting up in the stretcher with BiPAP , in no acute distress. VITAL SIGNS: Temperature 98.0, heart rate 90, respiratory rate 19, oxygen saturation 99% on room air, blood pressure 116/56. HEENT: Pupils are equal. Moist mucous membranes. The patient has a JVD at 70 degrees. CHEST: Breath sounds bilaterally decreased with bibasilar crackles. CVS: Normal S1, S2. Regular rate and rhythm. ABDOMEN: Soft, nontender, bowel sounds present. EXTREMITIES: Bilateral lower extremity edema. NEUROLOGIC: He is sleeping, arousable to voice, able to answer 'yes' or 'no' questions, but then he goes back to sleep (the patient received Ativan 1 mg IV not that long ago). LABORATORY AND IMAGING DATA: The patient had a CBC that showed WBC of 11, hemoglobin 13.7, hematocrit 42, platelets 174, with 73% neutrophils. ABG showed a pH of 7.31, PCO2 of 43, PaO2 of 127. Bicarb 21.4. Oxygen saturation 98%; this was done on BiPAP. Chemistry showed sodium of 137, potassium 3.8, chloride 103, bicarb 26, BUN 14, creatinine 1.15, glucose 245. Lactic acid 3.2 , calcium 9.2. LFTs are normal. Troponin 0.05. BNP 1119. Chest x-ray is not yet officially read. It shows vascular congestion, coarse interstitium even coarser than his prior from October 2016 with cardiomegaly. EKG was a poor study with sinus tachycardia at 109 beats per minute, PVCs, signs of LVH. No significant change when compared to his prior one from October 2016. ASSESSMENT AND PLAN: Mr. Matthew is an 81-year-old male with a past medical history of coronary artery disease, status post non-ST elevation myocardial infarction in October 2016, systolic congestive heart failure with ejection fraction of 20% to 25%, chronic obstructive pulmonary disease on home oxygen, tobacco abuse, type 2 diabetes, peripheral vascular disease, and Monoclonal gammopathy of undetermined significance who presented to the emergency room with complaints of severe shortness of breath, found to have acute systolic congestive heart failure exacerbation. 1. Acute respiratory failure. The patient is responding to BiPAP and diuresis at this time. At baseline, he is on 3 liters of oxygen at home. The source of this episode seems to be congestive heart failure exacerbation. 2. Acute systolic congestive heart failure exacerbation. One contributing factor is certainly the lack of furosemide for two days. Yesterday was Thanksgiving, and I do not know if the patient comminuted any dietary indiscretion as he cannot give me much of a history at this point. We are going to continue diuresis with furosemide, and continue his medications after his list is updated. 3. Borderline troponin. Suspect this is likely secondary to congestive heart failure exacerbation, but we are going to trend it to peak since the patient has a known history of coronary artery disease. 4. Lactic acidosis. The patient does not appear to be affected at this time. I suspect his lactic acid is likely secondary to poor perfusion in the setting of very low ejection fraction and congestive heart failure exacerbation. We are going to trend his lactic acid. 5. Type 2 diabetes. He is going to be n.p.o for now while he is on the BiPAP. We are going to check fingersticks and cover with a lispro sliding scale. 6. Chronic obstructive pulmonary disease. The patient does not appear to be in exacerbation at this time. We are going to continue bronchodilators. 7. DVT prophylaxis. The patient has a score of 5 on the DVT Prophylaxis Risk Assessment Guide. He will be started on subcutaneous heparin. 8. Code status: The patient is unable to have a conversation about code status at this time, but his MOLST form filled on October 2016 indicates he wishes to be a do not resuscitate, do not intubate, but he would be agreeable with non- invasive ventilation. We are going to honor those wishes. When he is more awake and able to carry on conversation, we can confirm his MOLST form once more. TIME SPENT: Approximately 55 minutes were spent with patient interview, medical records review, physical examination to complete this admission; more than half of this time was spent [id number] with patient in coordination of care. [id number]/[facility] #: [id number] TERRA
[2017-03-12] MEDS ORDERED: Insulin LISPRO* 1 UNITS UNIT SUBCUT SCH (10:00)
[2017-03-12] MEDS: Insulin LISPRO* 1 UNITS UNIT SUBCUT SCH ×3 (12:03→21:49)
[2017-03-12] MEDS: Aspirin EC Low Dose* 81 MG TAB.EC PO SCH (12:03)
[2017-03-12] MEDS: Metoprolol Succinate XL TAB* 25 MG PO SCH (12:03)
[2017-03-12] MEDS: Clopidogrel TAB* 75 MG PO SCH (12:03)
[2017-03-12] MEDS: Heparin VIAL(*) 5000 UNITS/ML VIAL (FIVE THOUSAND) SUBCUT SCH ×2 (14:22→21:49)
[2017-03-12] MEDS: Atorvastatin* 40 MG TAB PO SCH (21:47)
[2017-03-13 05:58] LABS: Hematocrit 36 % (42-52); Hemoglobin 12.3 g/dl (14.0-18.0); Mean Corpuscular HGB Conc 34 g/dl (31-36); Mean Corpuscular Hemoglobin 32 pg (27-31); Mean Corpuscular Volume 95 fL (80-94); Mean Platelet Volume 8 um3 (7.4-10.4); Red Blood Count 3.83 10^6/ul (4.0-5.4); Red Cell Distribution Width 14 % (10.5-15); White Blood Count 11.9 10^3/ul (3.5-10.8)
[2017-03-13] MEDS: Heparin VIAL(*) 5000 UNITS/ML VIAL (FIVE THOUSAND) SUBCUT SCH ×3 (06:01→21:07)
[2017-03-13 06:27] LABS: BUN/Creatinine Ratio 18.8 (8-20); Calcium 9.2 mg/dL (8.6-10.3); EGFR African American 96.9 (>60); EGFR Non-African American 75.4 (>60); Potassium 4.3 mmol/L (3.5-5.0)
--- NOTE | 2017-03-13 09:29 | PN ---
Subjective Date of Service: 03/13/17 Interval History: This is an 81 yo male with severe systolic HF, COPD requiring 2.5L of supp O2 at baseline, DM, CAD and continues to smoke who presented acutely short of breath. Patient required BiPAP initially and admitted to ICU. He was transferred to the telemetry floor overnight last night. This am, patient reports that he is feeling relatively well. Denies CP or SOB. No abd pain, n/v. Objective Active Medications: Acetaminophen (Tylenol Tab*) 650 mg PO Q6H PRN PRN Reason: pain/fever Albuterol/Ipratropium (Duoneb (Albuterol 2.5 Mg/Ipratropium 0.5 Mg)) 1 neb INH Q4H PRN PRN Reason: SOB/WHEEZING Aspirin (Aspirin Ec Low Dose*) 81 mg PO DAILY [facility] Last Admin: 03/12/17 12:03 Dose: 81 mg Atorvastatin Calcium (Lipitor*) 40 mg PO 1700 [facility] Last Admin: 03/12/17 21:47 Dose: 40 mg Clopidogrel Bisulfate (Plavix Tab*) 75 mg PO DAILY [facility] Last Admin: 03/12/17 12:03 Dose: 75 mg Dextrose (D50w Syringe 50 Ml*) 12.5 gm IV PUSH .FOR FS < 60 - SS PRN PRN Reason: FS < 60 Furosemide (Lasix Iv*) 40 mg IV DAILY [facility] Heparin Sodium (Porcine) (Heparin Vial(*)) 5,000 units SUBCUT Q8HR [facility] Last Admin: 03/13/17 06:01 Dose: 5,000 units Insulin Human Lispro (Humalog*) 0 units SUBCUT ACHS [facility] PRN Reason: Protocol Last Admin: 03/12/17 21:49 Dose: 4 units Metoprolol Succinate (Toprol Xl Tab*) 25 mg PO DAILY [facility] Last Admin: 03/12/17 12:03 Dose: 25 mg Nicotine (Nicotine Patch 21 Mg/24 Hr*) 1 patch TRANSDERM DAILY [facility] Ondansetron HCl (Zofran Inj*) 4 mg IV Q6H PRN PRN Reason: NAUSEA Pharmacy Profile Note (Nicotine Patch Removal Note*) 1 note FOLLOW UP 2099 [facility] Vital Signs: Temp Pulse Resp BP Pulse Ox 98.5 F 85 20 122/69 98 03/13/17 03:21 03/13/17 03:21 03/13/17 03:21 03/13/17 03:21 03/13/17 03:21 Oxygen Devices in Use Now: Nasal Cannula Appearance: Relatively well appearing elderly male in NAD Respiratory: Symmetrical Chest Expansion and Respiratory Effort, Clear to Auscultation Cardiovascular: NL Sounds; No Murmurs; No JVD, RRR Abdominal: NL Sounds; No Tenderness; No Distention Extremities: No Edema Skin: No Rash or Ulcers Neurological: Alert and Oriented x 3 Result Diagrams: 03/13/17 05:33 03/13/17 05:33 Microbiology and Other Data: Microbiology 03/12/17 08:30 Nasal Screen MRSA (PCR)([facility]ORIS) - Final Nasal Mrsa Negative Assess/Plan/Problems-Billing Assessment: This is an 81 yo male with severe systolic HF, COPD requiring 2.5L of supp O2 at baseline, DM, CAD and continues to smoke who presented acutely short of breath. He was in acute heart failure and required BiPAP rescue initially. - Patient Problems (1) Acute and chronic respiratory failure Comment: Acute hypoxic respiratory with a chronic component due to COPD and CHF Acute failure secondary to heart failure decompensation Now improved, back to baseline O2 requirements (2) CHF (congestive heart failure) Comment: Chronic systolic failure with acute exacerbation EF 20-25%. cont daily Lasix/BB/ACEI (3) COPD (chronic obstructive pulmonary disease) Comment: No associated exacerbation Patient is not interested in quitting smoking Cont home inhalers (4) Demand ischemia Comment: Troponin peaked at 0.67 Known CAD No c/o CP, no ischemic changes on EKG Likely all demand related to heart failure exacerbation (5) Lactic acid acidosis Comment: No evidence of sepsis Likely due to hypoperfusion related to heart failure (6) DM2 (diabetes mellitus, type 2) Comment: Cont SS Humalog coverage Glucose appears well controlled at this time (7) Tobacco abuse Comment: Nicotine patch per patient request Patient is not interested in quitting (8) DNR (do not resuscitate) (9) DVT prophylaxis Comment: SQ heparin Status and Disposition: Inpatient. Likely dc home tomorrow
[2017-03-13] MEDS: Insulin LISPRO* 1 UNITS UNIT SUBCUT SCH ×4 (09:53→22:28)
[2017-03-13] MEDS: Furosemide IV* 10 MG/ML VIAL (40 MG) IV SCH (09:53)
[2017-03-13] MEDS: Aspirin EC Low Dose* 81 MG TAB.EC PO SCH (09:54)
[2017-03-13] MEDS: Metoprolol Succinate XL TAB* 25 MG PO SCH (09:54)
[2017-03-13] MEDS: Clopidogrel TAB* 75 MG PO SCH (09:54)
[2017-03-13] MEDS: Nicotine PATCH 21 MG/24 HR* PATCH TRANSDERM SCH ×2 (10:02→10:05)
[2017-03-13] MEDS: Calcium Carbonate CHEW TAB* 500 MG (TUMS) PO PRN (15:36)
--- NOTE | 2017-03-13 16:58 | CONS ---
CC: Hospitalist Service, Dr. Glover; Dr. Mascorro; Dr. Bynum CARDIOLOGY CONSULT: DATE OF CONSULT: 03/13/17 HISTORY OF PRESENT ILLNESS: I was asked by Dr. Glover to see this 81-year-old male patient who was D NR, presented to the hospital with shortness of breath and acute respiratory distress. He does have a known comorbidities with history of COPD, tobacco abuse, history of coronary artery disease, most r ecent one was in October 2016 for non-ST elevation myocardial infarction, history of congestive heart fa ilure, known severe cardiomyopathy with EF 20%, type 2 diabetes mellitus, peripheral vascular disease , status post bilateral carotid endarterectomy and aortofemoral stents in the past. The patient give s no symptoms of chest pain. He was placed on BiPAP and felt much better. He was transferred from [facility] intensive care unit to the telemetry floor. He gives no fever, no chills, no nausea, no vomiting, no hematochezia, no skin rash, no abdominal pain, no orthopnea, no hematochezia, no swelling in the lower extremities is appreciated. He feels much better already. His review of all other systems esse ntially is negative. PAST MEDICAL HISTORY: Extensive including COPD, coronary artery disease, systolic heart failure, typ e 2 diabetes, peripheral vascular disease. MEDICATIONS: His medications as an inpatient includin. Tylenol 650 mg p.o. q.6 hours p.r.n. 2. DuoNeb. 3. Aspirin 81 mg daily. 4. Lipitor 40 mg daily. 5. Plavix 75 mg daily. 6. Lasix 40 mg IV. 7. Heparin adjusted to his PTT insulin. 8. Metoprolol 25 mg daily. 9. Nicotine patch 21 mg every 24 hours. ALLERGIES: He had some allergies to PENICILLIN. FAMILY HISTORY: Noncontributory. SOCIAL HISTORY: He gives no history of smoking, drinking, or illicit drug use. REVIEW OF SYSTEMS: Review of all other systems essentially is negative. PHYSICAL EXAMINATION: He is awake, alert, and oriented. He is not in acute distress. His vitals to day, blood pressure 101/52, temperature 98.3, respiratory rate 18. Head and Neck Exam: Normocephali c, atraumatic head. Ears, nose and throat essentially benign. Neck: Supple. JVP is not elevated. No carotid bruits. No masses in the neck is appreciated. Chest: Clear to auscultation. No rales, no wheezes, no added sounds appreciated. Examination of the lungs showed diminished air entry at th e bases. Heart: Normal. Regular S1, S2. No added sounds. No gallops, no rubs. Abdomen: Benign, positive bowel sounds. Extremities: No edema, no cyanosis, no clubbing. Skin exam is normal. Psyc h: Normal affect and mood. CLOTH SANDER: No focal deficit is appreciated. DIAGNOSTIC STUDIES/LAB DATA: His labs showed sodium 137, potassium 3.8, chloride 103, BUN 14, creati nine 1.15. Lactic acid 2.7, troponin 0.40. BNP is 1119. Troponin did peak at 0.67 is going down now . Potassium today 4.3. His white blood cell 11.9, hemoglobin 12.3, hematocrit 36, platelets 135. H is EKG showed him to be in sinus rhythm. There are Q-waves in V1, V2, V3 and V4. PVC appreciated. IMPRESSION: The patient is an 81-year-old with: 1. Presentation with acute respiratory distress, improving. 2. Known history of severe cardiomyopathy with EF 20% or less. 3. History of coronary artery disease. 4. Diabetes mellitus. 5. Peripheral vascular disease as described extensive. 6. History of acute on chronic systolic heart failure. 7. Elevated troponin. He is chest pain free mildly could be related to his severe cardiomyopathy an d acute respiratory distress. 8. The patient is DNR. PLAN: The patient currently overall appears to be stable. He is not in congestive heart failure. Leonel crowell has no angina. He is to continue on the current medication. He already doing daily weights, I's a nd O's, restrict sodium to 2 g or less, restrict total fluid per 24 hour to 1 L or less. Keep a clos e eye on his potassium and sodium as well as his kidney function. He wants to continue to be DNR. Leonel crowell wants only to continue for medically treatment. He does not want any further testing or invasive o r interventional procedures at the present time as per his wishes, which are respected. I answered a ll his concerns and questions up to his satisfaction. I did discuss him with Dr. Glover. TIME SPENT: More than half of at least 60 plus minutes was in the education and counseling mode, fac e-to-face, explaining the above to the patient and making further recommendations. [id number]/[facility] #: [id number]
[2017-03-13] MEDS: Atorvastatin* 40 MG TAB PO SCH (17:20)
[2017-03-13] MEDS ORDERED: Nicotine Patch Removal NOTE FOLLOW UP SCH (21:00)
[2017-03-14] MEDS: Calcium Carbonate CHEW TAB* 500 MG (TUMS) PO PRN (01:36)
[2017-03-14] MEDS: Heparin VIAL(*) 5000 UNITS/ML VIAL (FIVE THOUSAND) SUBCUT SCH (06:46)
[2017-03-14] MEDS: Insulin LISPRO* 1 UNITS UNIT SUBCUT SCH ×2 (07:44→11:51)
[2017-03-14] MEDS: Furosemide IV* 10 MG/ML VIAL (40 MG) IV SCH (07:45)
[2017-03-14] MEDS: Aspirin EC Low Dose* 81 MG TAB.EC PO SCH (07:45)
[2017-03-14] MEDS: Metoprolol Succinate XL TAB* 25 MG PO SCH (07:45)
[2017-03-14] MEDS: Clopidogrel TAB* 75 MG PO SCH (07:45)
[2017-03-14] MEDS: Nicotine PATCH 21 MG/24 HR* PATCH TRANSDERM SCH (07:46)
[2017-03-14 07:58] VITALS: BP 102/69
--- NOTE | 2017-03-15 01:52 | DS ---
CC: Dr. Erik Bynum * DISCHARGE SUMMARY: DATE OF ADMISSION: 03/12/17 DATE OF DISCHARGE: 03/14/17 PRIMARY CARE PROVIDER: Dr. Erik Bynum. DISCHARGING PROVIDER: KOREY Donald SUPERVISING PHYSICIAN: Jessica Murray DO * (DICTATED BY KOREY DONALD) PRIMARY DISCHARGE DIAGNOSES: 1. Acute on chronic respiratory failure secondary to congestive heart failure exacerbation requiring BiPAP rescue therapy. 2. Demand ischemia with a troponin peak at 0.67. 3. Lactic acidosis without associated sepsis likely secondary to hypoperfusion related to acute heart failure. SECONDARY DISCHARGE DIAGNOSES: 1. Severe systolic heart failure with an EF of 20% to 25%. 2. Chronic obstructive pulmonary disease without acute exacerbation. 3. Diabetes. 4. Tobacco abuse without interest in quitting. DISCHARGE MEDICATIONS: 1. Aspirin 81 mg p.o. daily. 2. Atorvastatin 40 mg p.o. daily. 3. Plavix 75 mg p.o. daily. 4. Lasix 20 mg p.o. daily. 5. Lisinopril 2.5 mg p.o. daily. 6. Metformin extended release 500 mg p.o. daily. 7. Metoprolol succinate 25 mg p.o. daily. 8. Spiriva 1 capsule inhaled daily. Medication changes: None. HOSPITAL IMAGING: Chest x-ray shows COPD with interstitial edema consistent with CHF. HOSPITAL COURSE: This is an 81-year-old gentleman with chronic respiratory failure secondary to COPD and CHF with fairly severe systolic failure with the last ejection fraction measured at 20% to 25% as well as coronary artery disease status post PCI in October 2016 as well as diabetes, peripheral vascular disease, and continued smoking behavior who presented to the emergency department with complaints of shortness of breath. The patient states that he has some chronic shortness of breath, but his symptoms had become progressively worse for at least a day or two prior to admission. The patient then stopped taking his Lasix as he felt that it was giving him a rash, specifically drying out his skin. He noted no associated lower extremity edema and he does not watch his weight at home. The patient is noncompliant with low-salt diet. When the patient reached the emergency department, he was acutely dyspneic. ABG showed mild respiratory acidosis. Initial CBC showed a mild leukocytosis with a white blood cell count of 11,000. Chemistries were unremarkable. BNP elevated at 1119 and initial troponin of 0.05 with a lactic acid of 3.2. The patient was placed on BiPAP rescue therapy for acute respiratory failure and admitted to ICU. The patient was diuresed with IV Lasix with good response. Serial troponins demonstrated as upward trend peaking at 0.67 without acute ischemic changes noted on EKG. His lactic acid improved. The patient was discharged out of ICU within 24 hours of admission and remained stable on the telemetry floor. The patient received additional IV Lasix and he reported that his respiratory symptoms returned back to baseline. He returned to his baseline oxygen requirements of 2 to 2.5 L of oxygen via nasal cannula without complaints of cough. The patient received extensive counseling in regards to the importance of medication adherence. He received instructions to resume his usual Lasix dose of 20 mg daily with instructions to monitor his weight daily. If he would gain 3 or more pounds in a day or 5 or more pounds in a week, he is instructed to take an extra dose of Lasix and call his primary care provider's office for further instructions. The patient is advised to maintain a low-salt diet and quit smoking, neither of which he is interested in. DISPOSITION AND FOLLOWUP PLAN: The patient is being discharged to home. No changes made to his home medications other than instructions to resume his Lasix. He requires close followup with his primary care provider regarding this hospitalization. Discussed weight monitoring as outlined above with the patient prior to discharge, which he is agreeable to. TIME SPENT: Greater than 30 minutes was spent on this discharge. KOREY DONALD [id number]/[facility] #: [id number] TERRA
== END 2017-03-14 13:50 | disposition home or self-care (01) | DRG 291 ==
LOC: ED 05:03 → ICU 07:36 → MEDTELE 03-13 00:04
PROVIDERS: ADMIT Internal Medicine; ATTEND Hospitalist
DX: I50.23 Acute on chronic systolic (congestive) heart failure (principal); J96.20 Acute and chronic respiratory failure, unspecified whether with hypoxia or hypercapnia; E11.42 Type 2 diabetes mellitus with diabetic polyneuropathy; E87.2 Acidosis; I24.8 Other forms of acute ischemic heart disease; J44.9 Chronic obstructive pulmonary disease, unspecified; F17.210 Nicotine dependence, cigarettes, uncomplicated; I25.10 Atherosclerotic heart disease of native coronary artery without angina pectoris; Z95.5 Presence of coronary angioplasty implant and graft; Z99.81 Dependence on supplemental oxygen; I25.2 Old myocardial infarction; Z88.0 Allergy status to penicillin; Z66 Do not resuscitate; Z79.1 Long term (current) use of non-steroidal anti-inflammatories (NSAID); Z79.82 Long term (current) use of aspirin; Z79.4 Long term (current) use of insulin; Z79.899 Other long term (current) drug therapy
CPT/HCPCS: 36415; 36600; 71010; 80048; 80053; 82803; 83605; 83880; 84484; 85025; 86140; 87040; 87641; 93005; 94002; 94660; 94760; A9270-GY; J1644; J1940; J2060; J2930; J3475

== ENCOUNTER 2017-09-16 23:18 | Observation (INO) | payer MEDICARE, BC ==
[2017-09-16] MEDS ORDERED: Albuterol/Ipratropium NEB.SOL* Albuterol 2.5 MG/Ipratropium 0.5 MG 3 ML INH ONE (23:55)
[2017-09-16] MEDS ORDERED: methylPREDNISolone 125 MG* 2 ML VIAL IV ONE (23:55)
[2017-09-17] MEDS: Albuterol 2.5 MG/3 ML NEB.SOL* (0.083%) INH SCH ×2 (00:15→00:41)
[2017-09-17 00:17] LABS: ABS Basophils 0 10^3/ul (0-0.2); ABS Eosinophils 0.1 10^3/ul (0-0.6); ABS Lymphocytes 0.9 10^3/ul (1.0-4.8); ABS Monocytes 0.9 10^3/ul (0-0.8); ABS Neutrophils 6.8 10^3/ul (1.5-7.7); ABS Nucleated RBC 0 10^3/ul; Eosinophil % 1.3 % (0-6); Hematocrit 36 % (42-52); Hemoglobin 12.1 g/dl (14.0-18.0); Mean Corpuscular HGB Conc 34 g/dl (31-36); Mean Corpuscular Hemoglobin 32 pg (27-31); Mean Corpuscular Volume 94 fL (80-94); Mean Platelet Volume 7.1 um3 (7.4-10.4); Nucleated Red Blood Cells % 0.1; Platelet Count 160 10^3/ul (150-450); Red Blood Count 3.81 10^6/ul (4.0-5.4); Red Cell Distribution Width 13 % (10.5-15); White Blood Count 8.7 10^3/ul (3.5-10.8)
[2017-09-17 00:26] LABS: INR 1.07 (0.77-1.02)
[2017-09-17 00:36] LABS: EGFR Non-African American 94.4 (>60)
[2017-09-17] MEDS ORDERED: Magnesium Sulfate 2 GM IV* 2 GM/50 ML BAG IVPB ONE (00:46)
[2017-09-17] MEDS ORDERED: Furosemide IV* 10 MG/ML VIAL (40 MG) IV SLOW PU ONE (00:48)
[2017-09-17] MEDS ORDERED: Iodixanol 320 (CONTRAST) 200 ML SDV IV ONE (01:21)
[2017-09-17] MEDS ORDERED: Levofloxacin 750 MG IVPREMIX(* 750 MG/150 ML BAG IVPB ONE (01:44)
--- NOTE | 2017-09-17 02:46 | ED ---
Dameon Anderson Tiffany, scriblayne for Micki Hu MD on 09/16/17 at 2353 . Respiratory - HPI Summary HPI Summary: 81 year old M BIBJohn to [facility] complains of increasing productive cough since 2 days ago. Symptoms aggravated by nothing. Symptoms alleviated by nothing. Reports shortness of breath. Denies fever. Hx of COPD, on O2 at home. - History of Current Complaint Chief Complaint: EDUpperRespComplaint Stated Complaint: SOB Time Seen by Provider: 09/16/17 23:43 Hx Obtained From: Patient Onset/Duration: Lasting Days - 2, Still Present Aggravating Factor(s): Nothing Alleviating Factor(s): Nothing Associated Signs and Symptoms: Negative - fever, SOB - Allergy/Home Medications Allergies/Adverse Reactions: Allergies Allergy/AdvReac Type Severity Reaction Status Date / Time Penicillins Allergy Rash Verified 09/17/17 00:48 PMH/Surg Hx/FS Hx/Imm Hx Previously Healthy: No Endocrine/Hematology History: Reports: Hx Diabetes Cardiovascular History: Reports: Hx Cardiac Arrest, Hx Congestive Heart Failure , Hx Hypercholesterolemia, Hx Hypertension Denies: Hx Peripheral Vascular Disease Respiratory History: Reports: Hx Asthma, Hx Chronic Obstructive Pulmonary Disease (COPD) GI History: Reports: Hx Gastrointestinal Bleed History: Denies: Hx Dialysis, Hx Renal Disease Musculoskeletal History: Denies: Hx Arthritis Sensory History: Reports: Hx Contacts or Glasses - For reading per patient Denies: Hx Hearing Aid Opthamlomology History: Reports: Hx Contacts or Glasses - For reading per patient Neurological History: Denies: Hx Dementia, Hx Developmental Delay, Hx Headaches, Hx Migraine, Hx Nerve Disease, Hx Seizures, Hx Spinal Cord Injury, Hx Transient Ischemic Attacks (TIA) - Surgical History Surgery Procedure, Year, and Place: cardiac stent. Infectious Disease History: No Infectious Disease History: Denies: Traveled Outside the [place] in Last 30 Days - Family History Known Family History: Negative: Hypertension, Blood Disorder - Social History Alcohol Use: None Hx Substance Use: No Substance Use Type: Reports: None Hx Tobacco Use: Yes Smoking Status (MU): Heavy Every Day Tobacco Smoker Type: Cigarettes Review of Systems Negative: Fever Positive: Shortness Of Breath, Cough - productive All Other Systems Reviewed And Are Negative: Yes Physical Exam - Summary Physical Exam Summary: VITAL SIGNS: Reviewed. GENERAL: Patient is a well-developed and nourished male who is lying comfortable in the stretcher. Patient is not in any acute respiratory distress. HEAD AND FACE: No signs of trauma. No ecchymosis, hematomas or skull depressions. No sinus tenderness. EYES: PERRLA, EOMI x 2, No injected conjunctiva, no nystagmus. EARS: Hearing grossly intact. Ear canals and tympanic membranes are within normal limits. MOUTH: Oropharynx within normal limits. NECK: Supple, trachea is midline, no adenopathy, no JVD, no carotid bruit, no c- spine tenderness, neck with full ROM. CHEST: Symmetric, no tenderness at palpation LUNGS: Pt has barrel chest, decreased breath sounds bilaterally. Pt is coughing up phlegm. CVS: Regular rate and rhythm, S1 and S2 present, no murmurs or gallops appreciated. ABDOMEN: Soft, non-tender. No signs of distention. No rebound no guarding, and no masses palpated. Bowel sounds are normal. EXTREMITIES: FROM in all major joints, no edema, no cyanosis or clubbing. NEURO: Alert and oriented x 3. No acute neurological deficits. Speech is normal and follows commands. SKIN: Dry and warm Triage Information Reviewed: Yes Vital Signs On Initial Exam: Initial Vitals Temp Pulse Resp BP Pulse Ox 99.4 F 90 20 132/78 95 09/16/17 23:25 09/16/17 23:25 09/16/17 23:25 09/16/17 23:25 09/16/17 23:25 Vital Signs Reviewed: Yes Diagnostics - Vital Signs Vital Signs Temp Pulse Resp BP Pulse Ox 09/16/17 23:25 99.4 F 90 20 132/78 95 - Laboratory Result Diagrams: 09/17/17 00:02 09/17/17 00:02 Lab Statement: Any lab studies that have been ordered have been reviewed, and results considered in the medical decision making process. - Radiology CXR Radiology Interpretation Completed By: ED Physician - Bilteral venous congestion. Questionable cavity in R lower node. Pending official report. - CT Chest CT Interpretation Completed By: Radiologist - Right upper lobe 5 mm non- specific lung nodule on axial image 80 of 248. If clinically indicated follow- up evaluation may be needed. ED physician has reviewed this report. - EKG 00:28 Cardiac Rate: NL - 83 BPM EKG Rhythm: Sinus Rhythm EKG Interpretation: LVH Disposition - Course Course Of Treatment: 81 year old M BIBA to [facility] complains of increasing productive cough since 2 days ago. Bloodwork obtained. Imaging consistent with CHF and COPD. Dr. Carey, hospitalist, agrees to admit pt for further evaluation. - Diagnoses Provider Diagnoses: CHF (congestive heart failure), COPD (chronic obstructive pulmonary disease) - Physician Notifications Discussed Care Of Patient With: Erik Carey Time Discussed With Above Provider: 02:24 Instructed by Provider To: Other - Dr. Carey, hospitalist, agrees to admit pt. Discharge - Sign-Out/Discharge Documenting (check all that apply): Discharge/Admit/Transfer - Discharge Plan Condition: Fair Disposition: ADMITTED TO [facility] Referrals: Fletcher SCHMIDT,Erik Roberts [Primary Care Provider] - The documentation as recorded by the Dameon burkett Tiffany accurately reflects the service I personally performed and the decisions made by , Micki Hu MD.
[2017-09-17] MEDS ORDERED: Albuterol 2.5 MG/3 ML NEB.SOL* (0.083%) INH PRN (03:06)
[2017-09-17] MEDS ORDERED: Mouth Piece, Nicotine* 1 EACH CARTRIDGE INH PRN (03:16)
[2017-09-17] MEDS ORDERED: Nicotine Inhaler* 10 MG AMP INH PRN (03:16)
[2017-09-17] MEDS ORDERED: Ondansetron INJ* 2 MG/ML VIAL IV PRN (03:17)
[2017-09-17] MEDS ORDERED: Acetaminophen TAB* 325 MG PO PRN (03:17)
[2017-09-17] MEDS: Heparin VIAL(*) 5000 UNITS/ML VIAL (FIVE THOUSAND) SUBCUT SCH ×3 (05:35→22:28)
[2017-09-17] MEDS: Clopidogrel TAB* 75 MG PO SCH (07:56)
[2017-09-17] MEDS: metFORMIN* 500 MG TAB PO SCH ×2 (07:56→17:30)
[2017-09-17] MEDS: Aspirin EC TAB* 81 MG TAB.EC PO SCH (07:56)
[2017-09-17] MEDS: Lisinopril TAB* 5 MG PO SCH (07:57)
[2017-09-17] MEDS: Furosemide TAB* 20 MG PO SCH (07:57)
[2017-09-17] MEDS: predniSONE TAB* 50 MG PO SCH (07:57)
[2017-09-17] MEDS: Metoprolol Succinate XL TAB* 25 MG PO SCH (07:57)
--- NOTE | 2017-09-17 08:09 | RAD ---
INDICATION: Shortness of breath. COMPARISON: Comparison is made with prior chest x-ray studies from November 12, 2016 and March 12, 2017. TECHNIQUE: Dual-energy PA and lateral views of the chest were obtained. FINDINGS: The heart is within normal limits in size. The lungs are hyperinflated with flattening of the diaphragms. There is diffuse prominence of the interstitial markings which have decreased from the prior exam. No focal infiltrate is seen. There is a small 5 mm calcified nodule which projects in the right upper lobe most consistent with chronic granulomatous disease. IMPRESSION: DIFFUSE INTERSTITIAL INFILTRATES CONSISTENT WITH CHRONIC INTERSTITIAL LUNG DISEASE ALTHOUGH AN ACUTE PROCESS SUCH PULMONARY EDEMA CANNOT BE EXCLUDED. RECOMMEND CLINICAL CORRELATION.
--- NOTE | 2017-09-17 08:14 | RAD ---
INDICATION: Chest pain. Short of breath. Evaluate for pulmonary embolus. COMPARISON: Chest x-ray September 17, 2017; CTA chest November 13, 2016 TECHNIQUE: Axial source images were obtained from the thoracic inlet to the hemidiaphragms following administration of 68 mL Visipaque [address] angiographic technique was utilized. Coronal and sagittal reconstructed images were acquired. CHEST FINDINGS: Neck/thyroid: The visualized neck to include the thyroid appear normal. Chest wall: There are no acute abnormalities of the bony thorax or chest wall. There is no supraclavicular, infraclavicular, or axillary lymphadenopathy. Lungs : There are no acute pulmonary parenchymal masses or infiltrates. There is coarsening of interstitium compatible with emphysema. There is evidence of old granulomatous disease. There are no endobronchial lesions. Cardiomediastinal structures: There is no CT evidence of acute pulmonary embolic disease. The heart is normal in size. There is no pericardial effusion. There is no evidence of aortic aneurysm or dissection. There are advanced arthritic changes with mild diffuse thoracic aortic ectasia and tortuosity. There is coronary artery disease. There are valvular calcifications There are borderline enlarged mediastinal lymph nodes, unchanged. The esophagus appears normal. Pleura : There is chronic blunting of the right costophrenic angle. Other: There is a left adrenal adenoma versus hyperplasia, unchanged. IMPRESSION: 1. No CT evidence of acute pulmonary embolic disease. 2. Advanced underlying emphysematous change. Old granulomatous disease. 3. Atherosclerosis.
[2017-09-17] MEDS: Mometasone/Formoter 200/5 MDI INH SCH ×2 (08:55→19:28)
[2017-09-17] MEDS: Tiotropium CAP.INH* CAP.INH/18 MCG (USE ORDER SET !) INH SCH (08:55)
[2017-09-17] MEDS ORDERED: Spiriva Inhaler DEVICE* 1 EACH DEVICE INH ONE (09:00)
--- NOTE | 2017-09-17 15:28 | HP ---
Cc: Dr. Bynum * HISTORY AND PHYSICAL: DATE OF ADMISSION: 09/17/2017. PRIMARY CARE PROVIDER: Dr. Erik Bynum. HEALTHCARE PROXY: The patient declines to designate anyone as his healthcare proxy, although he is . CODE STATUS: DNR, although patient wishes to be intubated temporarily if needed. SOURCE OF INFORMATION: History obtained from interview of the patient, review of past medical records. RELIABILITY: Fair. CHIEF COMPLAINT: Shortness of breath. HISTORY OF PRESENT ILLNESS: This is an 81-year-old man with past medical history of COPD with current 1 pack per day active tobacco use as well as acute systolic heart failure with last known EF around 20%. Last hospital stay at [facility] in February of 2017 after admitted with acute decompensated systolic heart failure exacerbation who is now presenting with approximately 2 or 3 days of increasing shortness of breath. At his baseline, he can ambulate about 50 feet without shortness of breath. He uses 3 L of oxygen at all times at home and has noticed that over the last 2 or 3 days his shortness of breath has increased such that he now becomes short of breath ambulating 10 feet or less. Night prior to presentation, he noted increased shortness of breath overnight and tonight he noticed the same thing not necessarily worse but came to the emergency room because of continued shortness of breath. He notes a cough which has been chronic which is usually productive. He notes no change in his frequency of cough, volume of sputum production nor the color of his sputum. He denies fevers, chills, nausea, vomiting, lightheadedness or diarrhea. He denies any medication changes and he notes he has not increased his oxygen use at home. He received albuterol in the emergency room and noted temporary improvement in his shortness of breath. When seen by this author he denied shortness of breath at rest. PAST MEDICAL HISTORY: Include, 1. CAD including PCI and STEMI also in 2017. 2. Severe systolic heart failure, EF 20%. 3. Type 2 diabetes. 4. Active tobacco use. 5. Peripheral vascular disease, status post bilateral CEA and aortofemoral stents. 6. Known monoclonal gammopathy, although unknown to what extent, of unknown significance, etc. MEDICATIONS: Reviewed from computer, patient is unable to verify at this time includes, 1. Atorvastatin 40 mg daily. 2. Aspirin 81 mg daily. 3. Clopidogrel 75 mg daily. 4. Lisinopril 2.5 mg daily. 5. Lasix 20 mg daily. 6. Tiotropium 1 cap inhale daily. 7. Metoprolol succinate 25 mg daily. 8. Metformin ER 500 mg daily. ALLERGIES: PENICILLIN. FAMILY HISTORY: Without COPD, CAD or peripheral vascular disease. SOCIAL HISTORY: Active tobacco use 1 pack per day, has smoked for 65 years. Has not drank alcohol in 40 years. Lives with his and 2 adult children. 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 REVIEW OF SYSTEMS: As per HPI, otherwise all other systems are negative. PHYSICAL EXAMINATION GENERAL: Elderly male, appears older than stated age, sitting up in bed with a cough which is nonproductive, does not appear acutely short of breath, not using accessory muscles of respiration, talks in full sentences. VITAL SIGNS: In the emergency room, 106/63, heart rate is 82, respiratory rate is 18. He is 95% on 3 L oxygen, T-max 99.4. HEENT: His oropharynx is clear with the moist mucous membranes. His sclerae are anicteric. NECK: He has elevated JVD to the angle of his jaw. LUNGS: Decreased aeration but are clear throughout without wheeze or rhonchi. HEART: He has regular rate and rhythm with systolic ejection murmur 2/6, loudest in the left lower sternal border. ABDOMEN: Soft, nontender, nondistended. EXTREMITIES: Warm and well-perfused without clubbing cyanosis or edema. NEUROLOGIC: He is alert and oriented x3. His cranial nerves are intact. He has no apparent anxiety, agitation or depression. LABORATORY DATA: His labs are reviewed, notable for a troponin of 0.04, CRP of 76.6, white blood cell count of 8.7. Data reviewed. CTA of the chest, overnight read, no definitive pulmonary embolism. Notable for emphysema as well as mild COPD. There is a right upper lobe 5 mm nonspecific lung nodule and large pulmonary arterial arteries consistent with pulmonary hypertension. Mild right basilar atelectasis, scarring and chronic atypical pneumonia. EKG: Normal sinus rhythm, left axis. Normal R-wave progression. No ST or T wave changes. ASSESSMENT AND PLAN: This is an 81-year-old man with past medical history of chronic obstructive pulmonary disease, severe congestive heart failure, coronary artery disease, active tobacco use presenting with increased shortness of breath over the last several days. 1. Chronic obstructive pulmonary disease exacerbation: I suspect chronic obstructive pulmonary disease as the etiology of his increased shortness of breath over the last several days given his acute onset. Otherwise I would favor continued worsening of his underlying lung disease as well as heart disease. He received a dose of Levaquin in the emergency room. I will not continue antibiotics at this time. However, I do note an elevated CRP and added on a procalcitonin in addition if he should develop fevers or other signs of sepsis would include antibiotics in further therapy of this gentleman. He received a 125 mg of methylprednisolone in the emergency room. We will continue prednisone 50 mg oral starting tomorrow. I noticed home medication reconciliation does not include an inhaled beta agonist nor inhaled steroid. We will continue Dulera now, recommend continuing as outpatient. Continue tiotropium which is his home medication. I have added on inhaled beta agonist as needed for shortness of breath. I did addiction treatment counselor smoking cessation. He is precontemplative. 2. Tobacco abuse: Nicotine inhaler. 3. Type 2 diabetes, continue metformin. 4. Systolic heart failure, low salt diet. 5. Continue Lasix at home dose. 6. Coronary artery disease: Continue aspirin, beta delon, statin. 7. Increased troponin: Suspect demand in the setting of chronic obstructive pulmonary disease exacerbation, recheck with next set of labs in the morning. 8. Code status: DNR. [id number]/[facility] #: [id number] MTDD
--- NOTE | 2017-09-17 16:34 | PN ---
Subjective Date of Service: 09/17/17 Interval History: Patient feels improvement in breathing this AM and an increase in his cough and sputum production corresponding to this. Patient denies CP, N/V, abdominal pain , diarrhea, dysuria, or other pain. 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 Patient has a rash on his side which he is concerned about which appears to be numerous small bruises with overlying small abrasions. Family History: Unchanged from Admission Social History: Unchanged from Admission Past Medical History: Unchanged from Admission Objective Active Medications: Acetaminophen (Tylenol Tab*) 650 mg PO Q4H PRN PRN Reason: FEVER/PAIN Albuterol (Ventolin 2.5 Mg/3 Ml Neb.Marissa*) 2.5 mg INH Q4H PRN PRN Reason: SOB/WHEEZING Aspirin (Aspirin Ec Tab*) 81 mg PO DAILY [facility] Last Admin: 09/17/17 07:56 Dose: 81 mg Atorvastatin Calcium (Lipitor*) 40 mg PO 1700 [facility] Clopidogrel Bisulfate (Plavix Tab*) 75 mg PO DAILY [facility] Last Admin: 09/17/17 07:56 Dose: 75 mg Device (Nicotine Mouth Piece*) 1 each INH .USE WITH NICOTROL PRN PRN Reason: CRAVING Furosemide (Lasix Tab*) 20 mg PO DAILY [facility] Last Admin: 09/17/17 07:57 Dose: 20 mg Heparin Sodium (Porcine) (Heparin Vial(*)) 5,000 units SUBCUT Q8HR [facility] Last Admin: 09/17/17 14:55 Dose: 5,000 units Lisinopril (Prinivil Tab*) 2.5 mg PO DAILY [facility] Last Admin: 09/17/17 07:57 Dose: 2.5 mg Metformin HCl (Glucophage*) 250 mg PO 0800,1700 [facility] Last Admin: 09/17/17 07:56 Dose: 250 mg Metoprolol Succinate (Toprol Xl Tab*) 25 mg PO DAILY [facility] Last Admin: 09/17/17 07:57 Dose: 25 mg Mometasone Furoate/Formoterol Fumar (Dulera 200/5 Mdi*) 2 puff INH BID [facility] Last Admin: 09/17/17 08:55 Dose: 2 puff Nicotine (Nicotine Inhaler*) 10 mg INH Q2H PRN PRN Reason: CRAVING Ondansetron HCl (Zofran Inj*) 4 mg IV Q4H PRN PRN Reason: NAUSEA/VOMITING Prednisone (Deltasone Tab*) 50 mg PO DAILY [facility] Last Admin: 09/17/17 07:57 Dose: 50 mg Tiotropium Ada (Spiriva Cap.Inh*) 1 cap INH DAILY [facility] Last Admin: 09/17/17 08:55 Dose: 1 cap Vital Signs - 8 hr 09/17/17 09/17/17 09/17/17 08:58 11:41 15:52 Temperature 97.3 F 97.2 F Pulse Rate 77 84 78 Respiratory 14 18 20 Rate Blood Pressure 130/72 110/57 (mmHg) O2 Sat by Pulse 94 96 98 Oximetry Oxygen Devices in Use Now: Nasal Cannula Appearance: Patient is an 81yo male who appears state age and is sitting in the bed in [facility]. Eyes: No Scleral Icterus, PERRLA Ears/Nose/Mouth/Throat: NL Teeth, Lips, Gums, Clear Oropharnyx, Mucous Membranes Moist Neck: NL Appearance and Movements; NL JVP, Trachea Midline Respiratory: Symmetrical Chest Expansion and Respiratory Effort, - - Severely diminished, no wheezes. Cardiovascular: NL Sounds; No Murmurs; No JVD, RRR, No Edema Abdominal: NL Sounds; No Tenderness; No Distention, No Hepatosplenomegaly Lymphatic: No Cervical Adenopathy Extremities: No Edema, No Clubbing, Cyanosis Skin: No Nodules or Sclerosis Neurological: Alert and Oriented x 3, NL Sensation, NL Muscle Strength and Tone , - - CN II-XII intact. 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 Patient is being treated for Mild COPD exacerbation. - Patient Problems (1) COPD (chronic obstructive pulmonary disease) Current Visit: No Status: Acute Code(s): J44.9 - CHRONIC OBSTRUCTIVE PULMONARY DISEASE, UNSPECIFIED SNOMED Code(s): 13477822 Comment: Currently in mild exacerbation with increased SOB. Improving on steroids and with inhalers. Elevated CRP with normal procalcitonin. Likely viral process causing exacerbation. Recommend continuation of triple inhaler therapy at home and addition of rescue inhaler. At home dose of O2. (2) Chronic respiratory failure Current Visit: Yes Status: Acute Code(s): J96.10 - CHRONIC RESPIRATORY FAILURE, UNSP W HYPOXIA OR HYPERCAPNIA SNOMED Code(s): 95772358 Comment: On 3L of O2 at home. Due to COPD. (3) Bronchitis Current Visit: No Status: Acute Code(s): J40 - BRONCHITIS, NOT SPECIFIED ACUTE OR CHRONIC SNOMED Code(s): 01690700 Comment: Very purulent sputum, elevated CRP, negative procalcitonin. Likely viral. Continue therapy for COPD exacerbation. (4) CHF (congestive heart failure) Current Visit: No Status: Acute Code(s): I50.9 - HEART FAILURE, UNSPECIFIED SNOMED Code(s): 90067549 Comment: Chronic systolic failure. No obvious exacerbation EF 20-25%. Cont daily Lasix at home dose and BB/ACEI Consider outpatient MRA therapy. (5) DM2 (diabetes mellitus, type 2) Current Visit: No Status: Acute Comment: Cont Metformin (6) Demand ischemia Current Visit: No Status: Acute Code(s): I24.8 - OTHER FORMS OF ACUTE ISCHEMIC HEART DISEASE SNOMED Code(s): 002059917 Comment: Troponin peaked at 0.04 Known CAD No c/o CP, no ischemic changes on EKG Likely all demand related to COPD exacerbation (7) Tobacco abuse Current Visit: No Status: Acute Code(s): Z72.0 - TOBACCO USE SNOMED Code(s ): 617441529 Comment: Nicotine inhaler per patient request Patient is not interested in quitting Smokes 1 PPD. (8) Hyponatremia Current Visit: No Status: Acute Code(s): E87.1 - HYPO-OSMOLALITY AND HYPONATREMIA SNOMED Code(s): 84302355 Comment: Mild, No overt symptoms, Likely due to acute illness, monitor. (9) DVT prophylaxis Current Visit: No Status: Acute Code(s): JSF4609 - SNOMED Code(s): 826882690 Comment: SQ heparin Status and Disposition: Admitted OBV.
[2017-09-17] MEDS ORDERED: Atorvastatin* 40 MG TAB PO SCH (17:00)
[2017-09-18] MEDS ORDERED: Omeprazole CAP* 20 MG PO ONE (05:33)
[2017-09-18] MEDS ORDERED: Omeprazole CAP* 20 MG ONE (05:35)
[2017-09-18] MEDS: Heparin VIAL(*) 5000 UNITS/ML VIAL (FIVE THOUSAND) SUBCUT SCH (05:40)
[2017-09-18 05:49] LABS: ABS Basophils 0 10^3/ul (0-0.2); ABS Eosinophils 0 10^3/ul (0-0.6); ABS Lymphocytes 1.1 10^3/ul (1.0-4.8); ABS Neutrophils 8.2 10^3/ul (1.5-7.7); ABS Nucleated RBC 0 10^3/ul; Eosinophil % 0.1 % (0-6); Hematocrit 36 % (42-52); Hemoglobin 12.3 g/dl (14.0-18.0); Lymphocyte % 11.1 % (25-47); Mean Corpuscular HGB Conc 34 g/dl (31-36); Mean Corpuscular Hemoglobin 32 pg (27-31); Mean Corpuscular Volume 93 fL (80-94); Mean Platelet Volume 7.5 um3 (7.4-10.4); Nucleated Red Blood Cells % 0; Platelet Count 202 10^3/ul (150-450); Red Blood Count 3.82 10^6/ul (4.0-5.4); Red Cell Distribution Width 13 % (10.5-15); White Blood Count 10.4 10^3/ul (3.5-10.8)
[2017-09-18 06:06] LABS: EGFR Non-African American 90.4 (>60)
[2017-09-18] MEDS: metFORMIN* 500 MG TAB PO SCH (09:03)
[2017-09-18] MEDS: Lisinopril TAB* 5 MG PO SCH (09:03)
[2017-09-18] MEDS: Furosemide TAB* 20 MG PO SCH (09:03)
[2017-09-18] MEDS: Aspirin EC TAB* 81 MG TAB.EC PO SCH (09:03)
[2017-09-18] MEDS: Clopidogrel TAB* 75 MG PO SCH (09:03)
[2017-09-18] MEDS: Metoprolol Succinate XL TAB* 25 MG PO SCH (09:04)
[2017-09-18] MEDS: Mometasone/Formoter 200/5 MDI INH SCH (09:04)
[2017-09-18] MEDS: Tiotropium CAP.INH* CAP.INH/18 MCG (USE ORDER SET !) INH SCH (09:05)
[2017-09-18] MEDS: predniSONE TAB* 50 MG PO SCH (09:47)
[2017-09-18 10:40] VITALS: BP 143/67
--- NOTE | 2017-09-19 01:45 | DS ---
CC: Dr. Erik Bynum * DISCHARGE SUMMARY: DATE OF ADMISSION: 09/17/17 DATE OF DISCHARGE: 09/18/17 PRIMARY CARE PROVIDER: Dr. Erik Bynum. MY ATTENDING WHILE IN THE HOSPITAL: Dr. Mich Pinzon.* (DICTATED BY KOREY CEBALLOS) PRIMARY DISCHARGE DIAGNOSIS: Chronic obstructive pulmonary disease exacerbation. SECONDARY DISCHARGE DIAGNOSES: 1. Coronary artery disease, status post percutaneous coronary intervention and ST- segment elevation myocardial infarction in 2017. 2. Severe systolic heart failure, ejection fraction 20% to 25%. 3. Type 2 diabetes mellitus. 4. Continued smoking. 5. Peripheral vascular disease, status post bilateral carotid endarterectomy and aortofemoral stents. 6. Monoclonal gammopathy of undetermined significance. 7. Chronic hypoxic respiratory failure. STUDIES DONE WHILE IN THE HOSPITAL: Chest x-ray from 09/16/17 shows diffuse interstitial infiltrates consistent with chronic interstitial lung disease, although acute process such as pulmonary edema cannot be excluded, recommended clinical correlation. Chest thorax CTA from 09/17/[address] evidence of acute pulmonary embolic disease, advanced underlying emphysematous change or granulomatous disease or atherosclerosis. 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 No ST- segment abnormalities. MEDICATIONS AT DISCHARGE: 1. Aspirin 81 mg p.o. daily. 2. Spiriva 1 cap inhalation daily. 3. Metformin 500 mg p.o. daily. 4. Furosemide 20 mg p.o. daily. 5. Lipitor 40 mg p.o. q.p.m. 6. Clopidogrel 75 mg p.o. daily. 7. Lisinopril 0.25 mg p.o. daily. 8. Metoprolol succinate 25 mg p.o. daily. 9. Tylenol 650 mg p.o. q.4 hours as needed. 10. Advair 1 puff inhalation b.i.d. 11. Prednisone 50 mg p.o. daily x3. 12. Albuterol 1 puff inhalation q.4 hours as needed for shortness of breathing and wheezing. New medications on discharge: 1. Tylenol. 2. Advair. 3. Prednisone. 4. Albuterol. Medications discontinued at discharge: None. HOSPITAL COURSE: This is a brief summary of the patient's presentation. For more details, please see history and physical from Erik Carey MD, on . In brief, the patient is an 81-year-old male with past medical history significant as above, who presented with increased shortness of breath for 2 to 3 days with increased productive cough, though no increase in oxygen need; the patient wears chronic 3 L of oxygen at home. The patient found that his exercise tolerance was decreased from about 50 feet to 10 feet. The patient had no recent sick contacts. No fevers or chills. No other signs of infection. The patient had no recent medication changes, no swelling in his legs. No dietary indiscretions. The patient continued to smoke 1 pack per day and was not interested in quitting. The patient improved greatly with administration of scheduled inhalers, Solu-Medrol, introduction of Dulera which he did not take at home, continue the Spiriva. The patient brought up much more sputum on the first day in the hospital. The patient was able to ambulate to the bathroom and back without shortness of breath. The patient's vital signs remained stable saturating in the high 90s on his home 3 L. The patient had mild tachypnea, but no other laboratory abnormalities. The patient had hyponatremia of 134 on admission, which decreased to 132 on 08/22/17. The patient on admission had a troponin of 0.04, which was repeated and showed no change. The patient also has CRP at 76.68 on admission. No significant laboratory abnormalities except for slight anemia with hemoglobin of 12.1 and 12.3. The patient had negative procalcitonin and was not started on antibiotics. The patient did not have a BNP drawn; however, he looked clinically euvolemic. The patient improved again overnight from 09/17/17 to 06/06. The patient is able to ambulate in the hallway with the nurse on for approximately 50 feet, which is his baseline without becoming short of breath. The patient was anxious and stable for discharge on 09/18/17. PHYSICAL EXAM ON DAY OF DISCHARGE: General: The patient is an 81-year-old male , who appears stated age and sitting comfortably in the bed in no acute distress. No increased work of breathing. Vital Signs: At the time of discharge, temperature 97.8, pulse rate 74, respiratory rate 20, oxygen saturation 100% on 3 L, blood pressure 143/67. HEENT: Head, normocephalic, atraumatic. Sclerae anicteric. No conjunctival injection. Nasal mucosa moist. Oral mucosa moist. No pharyngeal erythema, discharge, or exudate. Neck : Supple, nontender. No lymphadenopathy. JVD to the angle of the jaw. No carotid bruit auscultated. Cardiac: Regular rate and rhythm. No clicks, murmurs, gallops, or rubs. Pulses 2+ in his bilateral dorsalis pedis, posterior tibial, and radial areas. Heart sounds are muffled. Respiratory: Clear to auscultation bilaterally. No wheezes, rales, or rhonchi. Diminished breath sounds throughout. Abdomen: Soft, nontender, nondistended. Bowel sounds present, normoactive in all 4 quadrants. No hepatosplenomegaly. No abdominal bruits auscultated. Genitourinary: No suprapubic or CVA tenderness. Skin: Clean, dry, and intact. No rash. Neuro: Cranial nerves II through XII intact. No focal deficits. Alert and oriented x3. Psychiatric: Pleasant and cooperative. LABORATORY DATA ON DAY OF DISCHARGE: White blood cell count 10.4, hemoglobin 12.3, hematocrit 36, platelet count 202. Sodium 132, potassium 3.7, chloride 93 , carbon dioxide 29, anion gap 10, BUN 20, creatinine 0.82, glucose 127, calcium 9.0. DISCHARGE PLAN: The patient will be discharged to home. The patient will be started on Advair, which is covered by insurance as well as being prescribed a rescue albuterol inhaler for as needed symptoms. The patient will be continued on 3 L of oxygen. The patient will be continued on prednisone 50 mg p.o. daily for 3 more days. The patient will follow up with his primary care provider within 1 week for general medical management including management of his diabetes, monitoring of his fluid status, and a repeat BMP to assess for resolution or improvement of his hyponatremia. The patient should return to the hospital for alarming symptoms such as chest pain, severely increased shortness of breath, or falls. The patient discussed at length with this provider a rash, which he has been having, which is very concerning to him. Continued evaluation of this rash should be obtained through Dermatology. The patient had slightly elevated glucoses while in the hospital. No hemoglobin A1c was checked. The patient should have lipid profile, hemoglobin A1c per standard screening for secondary prevention of LA. Consideration should be made for evaluation by a radiation therapy technician for optimizing control of COPD as well as monitoring possible interstitial lung disease identified on chest x-ray and CTA. The patient should engage in activity as tolerated and have a heart-healthy diet without caffeine. The patient has been counseled on the benefits of smoking cessation and he is not interested at this time. The patient, however, does state that he has been trying to inhale less of the cigarette smoke that he produces; he just likes the taste. TIME SPENT: Approximately 60 minutes was spent on this discharge, 30 of which spent [id number] with the patient obtaining history and physical and discussing treatment plan. KOREY CEBALLOS [id number]/CPS #: [id number] MTDLaurence
== END 2017-09-18 11:45 | disposition home or self-care (01) ==
LOC: ED 23:18 → MEDTELE 09-17 03:17 → SSU 09-17 20:05
PROVIDERS: ADMIT Internal Medicine; ATTEND Student in an Organized Health Care Education/Training Program
DX: J44.1 Chronic obstructive pulmonary disease with (acute) exacerbation (principal); I25.10 Atherosclerotic heart disease of native coronary artery without angina pectoris; Z95.5 Presence of coronary angioplasty implant and graft; E11.9 Type 2 diabetes mellitus without complications; F17.210 Nicotine dependence, cigarettes, uncomplicated; I50.20 Unspecified systolic (congestive) heart failure; I73.9 Peripheral vascular disease, unspecified; D47.2 Monoclonal gammopathy; J96.11 Chronic respiratory failure with hypoxia; Z79.899 Other long term (current) drug therapy; Z88.0 Allergy status to penicillin; I24.8 Other forms of acute ischemic heart disease; J40 Bronchitis, not specified as acute or chronic; E87.1 Hypo-osmolality and hyponatremia; R94.31 Abnormal electrocardiogram [ECG] [EKG]
CPT/HCPCS: 36415; 71046; 71275; 80048; 80053; 83605; 84145; 84484; 85025; 85610; 85730; 86140; 87040; 93005; 94640; 96365; 96367; 96372; 96375; 99284; 99406; A9270-GY; G0378; J1644; J1940; J2930; J3475; J7512; Q9967

== ENCOUNTER 2017-10-09 16:26 | Observation (INO) | payer MEDICARE, BC ==
[2017-10-09] MEDS ORDERED: Levalbuterol 0.63MG/3ML NEB* UNIT OF USE INH ONE (16:57)
[2017-10-09] MEDS ORDERED: Azithromycin IV(*) 500 MG in NS 0.9% 250 ML* 250 ML IVPB ONE (17:02)
[2017-10-09] MEDS ORDERED: methylPREDNISolone 125 MG* 2 ML VIAL IV ONE (17:03)
[2017-10-09] MEDS ORDERED: Sterile Water for Inj* 10 ML ONE (17:08)
[2017-10-09] MEDS ORDERED: Levalbuterol 1.25MG/0.5ML NEB ONE (17:11)
[2017-10-09] MEDS ORDERED: Levalbuterol 1.25MG/0.5ML NEB INH ONE (17:15)
[2017-10-09 17:29] LABS: ABS Basophils 0 10^3/ul (0-0.2); ABS Eosinophils 0 10^3/ul (0-0.6); ABS Lymphocytes 0.8 10^3/ul (1.0-4.8); ABS Monocytes 0.5 10^3/ul (0-0.8); ABS Neutrophils 4.5 10^3/ul (1.5-7.7); ABS Nucleated RBC 0 10^3/ul; Eosinophil % 0.1 % (0-6); Hematocrit 36 % (42-52); Hemoglobin 12.1 g/dl (14.0-18.0); Lymphocyte % 14.1 % (25-47); Mean Corpuscular HGB Conc 34 g/dl (31-36); Mean Corpuscular Hemoglobin 32 pg (27-31); Mean Corpuscular Volume 93 fL (80-94); Mean Platelet Volume 7.1 um3 (7.4-10.4); Nucleated Red Blood Cells % 0; Platelet Count 163 10^3/ul (150-450); Red Blood Count 3.83 10^6/ul (4.00-5.40); Red Cell Distribution Width 14 % (10.5-15); White Blood Count 5.8 10^3/ul (3.5-10.8)
--- NOTE | 2017-10-09 17:45 | RAD ---
INDICATION: Short of breath COMPARISON: Chest x-ray September 17, 2017 TECHNIQUE: PA and lateral dual-energy views were obtained. FINDINGS: Bones/Soft Tissues: There are no acute bony findings. Cardiomediastinal: The cardiomediastinal silhouette is normal. Lungs: There is hyperinflation with interstitial fibrosis. There are no acute infiltrates. Pleura: Chronic blunting right costophrenic angle. Other: None IMPRESSION: HYPERINFLATION WITH INTERSTITIAL FIBROSIS. NO ACUTE FINDINGS.
[2017-10-09 17:49] LABS: EGFR Non-African American 94.1 (>60)
--- NOTE | 2017-10-09 19:57 | ED ---
Jef Anderson Natalie, scribed for Rula Mitchell MD on 10/09/17 at 1700 . Shortness of Breath - HPI Summary HPI Summary: The patient is an 82 y/o M presenting to [facility] c/o SOB starting this morning worsening throughout the day. He states he has had SOB for a while, but his symptoms today are much worse than normal. He additionally c/o chills and productive cough with yellow and clear phlegm and wheezing that began in the last week. He denies fever. At home the pt uses 3L O2 NC, and he turned it up to 3.5L to some relief today when his SOB started. He is a previous smoker who stopped 65 years ago. - History of Current Complaint Chief Complaint: EDShortnessOfBreath Time Seen by Provider: 10/09/17 16:31 Hx Obtained From: Patient Onset/Duration: Lasting Days, Still Present Timing: Constant Current Severity: Moderate Dyspnea At: Rest Aggrevating Factors: Nothing Alleviating Factors: Other - changing from 3.0L O2 to 3.5L O2 at home Associated Signs & Symptoms: Negative - fever, Cough (Productive), Wheezing, Chills - Allergy/Home Medications Allergies/Adverse Reactions: Allergies Allergy/AdvReac Type Severity Reaction Status Date / Time Penicillins Allergy Rash Verified 09/17/17 00:48 PMH/Surg Hx/FS Hx/Imm Hx Endocrine/Hematology History: Reports: Hx Diabetes Cardiovascular History: Reports: Hx Cardiac Arrest, Hx Congestive Heart Failure , Hx Hypercholesterolemia, Hx Hypertension Denies: Hx Peripheral Vascular Disease Respiratory History: Reports: Hx Asthma, Hx Chronic Obstructive Pulmonary Disease (COPD) GI History: Reports: Hx Gastrointestinal Bleed History: Denies: Hx Dialysis, Hx Renal Disease Musculoskeletal History: Denies: Hx Arthritis Sensory History: Denies: Hx Contacts or Glasses, Hx Hearing Aid Opthamlomology History: Denies: Hx Contacts or Glasses Neurological History: Denies: Hx Dementia, Hx Developmental Delay, Hx Headaches, Hx Migraine, Hx Nerve Disease, Hx Seizures, Hx Spinal Cord Injury, Hx Transient Ischemic Attacks (TIA) - Surgical History Surgery Procedure, Year, and Place: cardiac stent. Infectious Disease History: No Infectious Disease History: Denies: Traveled Outside the [place] in Last 30 Days - Family History Known Family History: Negative: Hypertension, Blood Disorder - Social History Alcohol Use: None Hx Substance Use: No Substance Use Type: Reports: None Hx Tobacco Use: Yes Smoking Status (MU): Heavy Every Day Tobacco Smoker Type: Cigarettes Review of Systems Positive: Chills. Negative: Fever Positive: Shortness Of Breath, Cough - productive All Other Systems Reviewed And Are Negative: Yes Physical Exam - Summary Physical Exam Summary: Appearance: Elderly, fraile Skin: Warm Eyes: Normal ENT: Normal Neck: Supple, nontender Respiratory: Bilateral diffuse rhonchi, audible expiratory wheezes, conversant Cardiovascular: Regular rate, regular rhythm. Normal S1, S2. Abdomen: Soft, nontender Musculoskeletal: Normal, Strength/ROM Intact Neurological: Normal, A&Ox3 Psychiatric: Normal General: No acute distress Triage Information Reviewed: Yes Vital Signs On Initial Exam: Initial Vitals Temp Pulse Resp BP Pulse Ox 100.0 F 103 20 129/93 98 10/09/17 16:35 10/09/17 16:35 10/09/17 16:35 10/09/17 16:35 10/09/17 16:35 Vital Signs Reviewed: Yes Diagnostics - Vital Signs Vital Signs Temp Pulse Resp BP Pulse Ox 10/09/17 16:43 20 10/09/17 16:36 103 25 99 10/09/17 16:35 100.0 F 106 19 129/93 97 - Laboratory Lab Results: Lab Results 10/09/17 10/09/17 10/09/17 Range/Units 17:19 17:19 17:19 WBC 5.8 (3.5-10.8) 10^3/ul RBC 3.83 L (4.00-5.40) 10^6/ul Hgb 12.1 L (14.0-18.0) g/dl Hct 36 L (42-52) % MCV 93 (80-94) fL MCH 32 H (27-31) pg MCHC 34 (31-36) g/dl RDW 14 (10.5-15) % Plt Count 163 (150-450) 10^3/ul MPV 7.1 L (7.4-10.4) um3 Neut % (Auto) 76.6 (38-83) % Lymph % (Auto) 14.1 L (25-47) % [place] % (Auto) 8.8 H (0-7) % Eos % (Auto) 0.1 (0-6) % Baso % (Auto) 0.4 (0-2) % Absolute Neuts (auto) 4.5 (1.5-7.7) 10^3/ul Absolute Lymphs (auto) 0.8 L (1.0-4.8) 10^3/ul Absolute Monos (auto) 0.5 (0-0.8) 10^3/ul Absolute Eos (auto) 0 (0-0.6) 10^3/ul Absolute Basos (auto) 0 (0-0.2) 10^3/ul Absolute Nucleated RBC 0 10^3/ul Nucleated RBC % 0 Sodium 132 L (135-145) mmol/L Potassium 3.9 (3.5-5.0) mmol/L Chloride 97 L (101-111) mmol/L Carbon Dioxide 28 (22-32) mmol/L Anion Gap 7 (2-11) mmol/L BUN 11 (6-24) mg/dL Creatinine 0.79 (0.67-1.17) mg/dL Est GFR ( Amer) 113.9 (>60) Est GFR (Non-Af Amer) 94.1 (>60) BUN/Creatinine Ratio 13.9 (8-20) Glucose 212 H (70-100) mg/dL Calcium 8.5 L (8.6-10.3) mg/dL Total Bilirubin 0.40 (0.2-1.0) mg/dL AST 14 (13-39) U/L ALT 8 (7-52) U/L Alkaline Phosphatase 97 (34-104) U/L Troponin I 0.03 (<0.04) ng/mL B-Natriuretic Peptide 580 H ( - 100) pg/mL Total Protein 7.0 (6.4-8.9) g/dL Albumin 3.4 (3.2-5.2) g/dL Globulin 3.6 (2-4) g/dL Albumin/Globulin Ratio 0.9 L (1-3) Result Diagrams: 10/09/17 17:19 10/09/17 17:19 Lab Statement: Any lab studies that have been ordered have been reviewed, and results considered in the medical decision making process. - Radiology CXR Xray Interpretation: Positive (See Comments) - Hyperinflation with interstitial fibrosis. No acute findings. ED physician has reviewed this report. Radiology Interpretation Completed By: Radiologist - EKG 16:43 Cardiac Rate: Tachycardia EKG Rhythm: Sinus Tachycardia - 103 BPM EKG Interpretation: Q waves in leads III, V2, and V3. No ST T wave changes. 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 BNP 580, not as bad as usual- 1000's ( in 2017) but pt would benefit from admission to inpt unit for 24-48 hrs for hypoxia monitoring. Spoke to Dr De Leon for admission- night hospitalist to evaluate pt - Diagnoses Provider Diagnoses: COPD exacerbation Discharge - Sign-Out/Discharge Documenting (check all that apply): Discharge/Admit/Transfer - Discharge Plan Condition: Stable Disposition: ADMITTED TO [facility] Discharge Disposition Comment: Spoke to Dr De Leon to admit pt to hospitalist service Referrals: Fletcher SCHMIDT,Erik Roberts [Primary Care Provider] - - Billing Disposition and Condition Condition: STABLE Disposition: Admitted to [facility] The documentation as recorded by the Jef burkett Natalie accurately reflects the service I personally performed and the decisions made by , Rula Mitchell MD.
[2017-10-09] MEDS ORDERED: Acetaminophen TAB* 325 MG PO PRN (20:04)
[2017-10-09] MEDS ORDERED: Dextrose 50% Syringe 50 ML* 25 GM/50 ML SYRINGE IV PUSH PRN (20:04)
[2017-10-09] MEDS ORDERED: Albuterol/Ipratropium NEB.SOL* Albuterol 2.5 MG/Ipratropium 0.5 MG 3 ML INH PRN (20:12)
[2017-10-09] MEDS: Heparin VIAL(*) 5000 UNITS/ML VIAL (FIVE THOUSAND) SUBCUT SCH (22:11)
[2017-10-09] MEDS ORDERED: PROCHLORPERAZINE INJ 5 MG/ML 2 ML VIAL IV PRN (22:20)
--- NOTE | 2017-10-09 22:29 | HP ---
CC: Dr. Erik Bynum. * HOSPITAL MEDICINE HISTORY AND PHYSICAL: DATE OF ADMISSION: 10/09/17. PRIMARY CARE PHYSICIAN: Dr. Erik Bynum. ATTENDING PHYSICIAN: Dr. Mich Pinzon MD * (dictation provided by Paola Newberry NP). CHIEF COMPLAINT: Shortness of breath with cough. HISTORY OF PRESENT ILLNESS: Mr. Matthew is an 82-year-old male with a past medical history of COPD with recent admission to our hospital, was discharged on 09/17/17 for COPD exacerbation as well as severe systolic congestive heart failure and ejection fraction of 20% and diabetes, who presents to the hospital today with concerns of cough and shortness of breath. Mr. Matthew states that he had been feeling well until about 2 to 3 days ago, at which time, he developed worsening shortness of breath with cough. He denies any fever. He states that his sputum has been thick and more purulent than usual. He has had no chest pain. He has been eating and drinking normally until today when he did not eat very well due to poor appetite because of feeling unwell. Today, he had a very difficult time catching his breath and therefore, decided to come to the emergency room for evaluation. In the emergency room, Mr. Matthew was found to need 4 L of oxygen, which is up from his baseline 3 L at home. His chest x-ray showed no infiltrate. His white blood cell count was normal. I suspected that he likely had a COPD exacerbation. He was treated with Solu-Medrol and dual nebulizer therapy. Despite this, he continued to be short of breath and therefore, Hospital Medicine was called for admission. PAST MEDICAL HISTORY: 1. Chronic hypoxic respiratory failure, on 3 L nasal cannula at home. 2. Coronary artery disease, status post PCI and stent in 2017. 3. Severe systolic congestive heart failure with ejection fraction 20%. 4. Type 2 diabetes, noninsulin dependent. 5. Active tobacco use. 6. Peripheral vascular disease, status post bilateral CEA and aortofemoral stents. 7. Monoclonal gammopathy of uncertain significance. MEDICATIONS: Medications today are: 1. Tiotropium 1 cap inhale daily. 2. Metoprolol succinate 25 mg p.o. daily. 3. Metformin ER 500 mg p.o. daily. 4. Lisinopril 2.5 mg p.o. daily. 5. Furosemide 20 mg daily. 6. Advair 230/21one puff inhaled b.i.d. 7. Atorvastatin 40 mg p.o. daily. 8. Aspirin 81 mg p.o. daily. 9. Albuterol inhaler 1 puff inhale q.4 hours p.r.n. 10. Tylenol p.r.n. ALLERGIES: PENICILLIN. FAMILY HISTORY: Reviewed and noncontributory. No report of COPD in the family. SOCIAL HISTORY: The patient is a daily pack a day smoker. He denies any alcohol use. He is unwilling to name a healthcare proxy today. REVIEW OF SYSTEMS: A 14-point review of systems was completed with Mr. Matthew and all those not mentioned above were negative. PHYSICAL EXAMINATION GENERAL: Mr. Matthew is sitting in the bed with his stepdaughter in-law at the bedside, and he is in no acute distress. VITAL SIGNS: Temperature 100.0, pulse rate 103, respiratory rate 20, O2 saturation 98% on 4L nasal cannula, and blood pressure 129/93. LUNGS: Diminished bilaterally. I am not able to appreciate any wheezing today. He is not using any accessory muscles to breathe. HEART: S1, S2. No murmur, rub, or gallop and regular. ABDOMEN: Soft, nontender. Bowel sounds positive x4. EXTREMITIES: No cyanosis or edema. NEURO: He is alert. He is oriented x3. He moves all extremities equally. There is no facial asymmetry or focal weakness. Extraocular movements are intact. SKIN: Intact. DIAGNOSTIC STUDIES/LAB DATA: Sodium 132, potassium 3.9, chloride 97, serum bicarbonate 28, BUN 11, creatinine 0.79, glucose 212. BNP 580. WBC 5.8, hemoglobin 12.1, hematocrit 36, and platelet count 163. Chest x-ray shows hyperinflation with interstitial fibrosis. No acute findings. EKG shows a sinus tachycardia, I guess with no evidence of ischemia, similar to baseline. ASSESSMENT AND PLAN: Mr. Matthew is an 82-year-old male with a past medical history of coronary artery disease with stent and severe systolic congestive heart failure and ejection fraction 20% as well as chronic hypoxic respiratory failure with 3 L nasal canula oxygen requirement at home who presents today to the hospital with concern for shortness of breath and cough, found to have chronic obstructive pulmonary disease exacerbation. Our plans are for observation in the hospital for the followin. Chronic obstructive pulmonary disease exacerbation: The patient has been treated with Solu-Medrol and dual nebulizers in the emergency department as well as azithromycin. We will continue this therapy with Solu-Medrol 40 mg q.8 hours until reassessment of the patient tomorrow for possible transition to prednisone orally. The patient will have azithromycin orally, he will have dual nebulizers p.r.n. He will have oxygen available and titrated as appropriate. He shows no evidence of infection and does not have an infiltrate on chest x- ray. 2. Type 2 diabetes: Plan to hold metformin. Provide blood glucoses q.a.c. with lispro sliding scale. 3. History of congestive heart failure: Continue furosemide. No evidence of acute exacerbation. 4. Hypertension: Continue metoprolol and lisinopril. 5. Hyperlipidemia: Continue atorvastatin. 6. Coronary artery disease: Continue aspirin. 7. Code status: DNR. TIME SPENT: Approximately 60 minutes were spent on the admission of this patient, more than half of the time was spent with the patient at the bedside reviewing the events leading up to this hospitalization, performing the physical examination, and reviewing my plan of care. PAOLA NEWBERRY NP [id number]/[facility] #: [id number] TERRA
[2017-10-10] MEDS: methylPREDNISolone SOD 40 MG* 1 ML VIAL IV SCH ×3 (02:15→07:44)
[2017-10-10] MEDS: Heparin VIAL(*) 5000 UNITS/ML VIAL (FIVE THOUSAND) SUBCUT SCH ×2 (06:02→15:47)
[2017-10-10] MEDS: Insulin LISPRO* 1 UNITS UNIT SUBCUT SCH ×2 (07:48→12:08)
[2017-10-10] MEDS ORDERED: Lisinopril TAB* 5 MG PO SCH (09:00)
[2017-10-10] MEDS ORDERED: Furosemide TAB* 20 MG PO SCH (09:00)
[2017-10-10] MEDS ORDERED: predniSONE TAB* 20 MG PO SCH ×2 (09:00→12:00)
[2017-10-10] MEDS ORDERED: Metoprolol Succinate XL TAB* 25 MG PO SCH (09:00)
[2017-10-10] MEDS ORDERED: Aspirin EC TAB* 81 MG TAB.EC PO SCH (09:00)
[2017-10-10] MEDS ORDERED: Tiotropium CAP.INH* CAP.INH/18 MCG (USE ORDER SET !) INH SCH (09:00)
[2017-10-10 11:48] VITALS: BP 106/49
[2017-10-10] MEDS ORDERED: Atorvastatin* 40 MG TAB PO SCH (17:00)
[2017-10-10] MEDS ORDERED: Azithromycin TAB* 250 MG PO SCH (17:30)
--- NOTE | 2017-10-12 13:18 | DS ---
CC: Dr. Erik Bynum * DISCHARGE SUMMARY: DATE OF ADMISSION: 10/09/17 DATE OF DISCHARGE: 10/10/17 PRIMARY CARE PROVIDER: Dr. Erik Bynum. MY ATTENDING WHILE IN THE HOSPITAL: Berto Kaye MD * (DICTATED BY KOREY CEBALLOS) PRIMARY DISCHARGE DIAGNOSIS: Chronic obstructive pulmonary disease exacerbation. SECONDARY DISCHARGE DIAGNOSES: 1. Chronic hypoxic respiratory failure, on 3 L nasal cannula. 2. Coronary artery disease status post PCI and stent in 2017. 3. Severe systolic congestive heart failure with ejection fraction 20%. 4. Type 2 diabetes, insulin dependent. 5. Active tobacco use. 6. Peripheral vascular disease. 7. Monoclonal gammopathy of uncertain significance. STUDIES DONE WHILE IN THE HOSPITAL: Chest x-ray from 10/09/17 read as hyperinflation with interstitial fibrosis. No acute findings. Electrocardiogram read as normal sinus rhythm, possible right atrial enlargement , possible left ventricular hypertrophy, normal axis. No ST segment abnormalities. Poor quality study. No other abnormalities. DISCHARGE MEDICATIONS: 1. Aspirin 81 mg p.o. daily. 2. Tiotropium 1 cap inhalation daily. 3. Furosemide 20 mg p.o. daily. 4. Lipitor 40 mg p.o. nightly. 5. Lisinopril 2.5 mg p.o. daily. 6. Metoprolol succinate 25 mg p.o. daily. 7. Tylenol 650 mg p.o. q.4 hours as needed. 8. Advair 230/21 one puff inhalation b.i.d. 9. Albuterol 1 puff inhalation q.4 hours as needed. 10. Albuterol 2.5 mg inhalation nebulizer solution q.4 hours as needed. 11. Azithromycin 250 mg p.o. q.p.m. x4. 12. Prednisone 60 mg p.o. daily x4. 13. Metformin 500 mg p.o. b.i.d. New medications at discharge: Metformin azithromycin and albuterol nebulizer. Medication discontinued at discharge: Metformin ER 500 mg p.o. daily. HOSPITAL COURSE: This is a brief summary of the patient's presentation. For more details, please see the history and physical from Paola Newberry NP, on . In brief, the patient is an 82-year-old male with a past medical history significant for the above, who presents the second time this month with increased cough and shortness of breath. The patient is an ongoing tobacco user. He claims he does not inhale the smoke into his lungs, but has been very resistant to quitting. The patient in the emergency department states he had worsening cough with increased sputum and increased thickness and purulence. The patient needs increased oxygen to maintain his saturations above 90%, needing 4 L, up from his normal 3. The patient had no other signs of infection. The patient was admitted to the hospital for chronic obstructive pulmonary disease exacerbation, was started on Solu-Medrol, azithromycin as well as nebulizer therapy. The patient had elevated fingerstick blood glucoses which were controlled with Lispro sliding scale. The patient improved greatly overnight. The patient states he felt back to his baseline and was able to ambulate without significant shortness of breath to his normal degree on . The patient states he was anxious to go home. It was discussed at length with the patient the benefits of quitting smoking if he desired to avoid recurrent readmission to the hospital. The patient stated understanding and stated that he would contemplate using Chantix that he already has at home. This was also discussed with the patient's . The patient states that the nebulizer worked significantly better for him than his albuterol inhaler particularly during exacerbations. The patient on admission had a sodium of 132 , BNP of 580, hemoglobin 12.1. No other significant laboratory abnormalities. The patient was stable and amenable for discharge on 10/10/17. PHYSICAL EXAMINATION ON THE DAY OF DISCHARGE: General: The patient is an 82- year- old male who appears stated age and is sitting comfortably in bed in no acute distress. Vital Signs: At the time of discharge temperature 97.3, pulse rate 78, respiratory rate 18, oxygen saturation 98% on 3 L, blood pressure 106/ 49. HEENT: Head normocephalic, atraumatic. Sclerae anicteric. No conjunctival injection. Nasal mucosa moist. Oral mucosa moist. Mild pharyngeal erythema. No discharge or exudate. Neck: Supple, nontender. No lymphadenopathy. No carotid bruits auscultated. No JVD. Cardiac: Regular rate and rhythm. No clicks, murmurs, gallops or rubs. Pulses 2+ in bilateral dorsalis pedis, posterior tibialis and radial areas. Respiratory: Clear to auscultation bilaterally. No wheezes, rales or rhonchi. Diminished breath sounds. Abdomen: Soft, nontender, nondistended. Bowel sounds present and normoactive in all 4 quadrants. No hepatosplenomegaly. No abdominal bruits auscultated. No hepatojugular reflux. Genitourinary: No suprapubic or CVA tenderness. Skin: The patient has a rash on upper torso consistent with exam from previous admission. Neuro: Cranial nerves II through XII intact. No focal deficits. Alert and oriented x3. Psychiatric: Pleasant and cooperative. LABORATORY DATA ON DAY OF DISCHARGE: White blood cell count 5.8, hemoglobin 12.1, platelet count 163,000. Sodium 132, potassium 3.9, chloride 97, carbon dioxide 28, anion gap 7, BUN 11, creatinine 0.79. Glucose 212, calcium 8.5, total bilirubin 0.4. AST 14, ALT 8, alkaline phosphatase 97. Troponin I of 0.03. BNP 580, total protein 7.0, albumin 3.4, globulin 3.6. DISCHARGE PLAN: The patient will be discharged to home. The patient will be continued on his maintenance inhalers of Advair and Spiriva. The patient will have albuterol nebulizer as needed for treatment for management of . The patient will be continued on prednisone for 4 more days as well as azithromycin 250 mg for 4 more days. The patient should follow up with his primary care provider within 1 week for general medical management including better glucose control of his diabetes. It has been discussed with the patient that his diet is poor for diabetic control and the patient states understanding, but is not willing to change his diet. It has also been discussed with the patient that smoking can contribute to the progression of COPD as well as the frequency of the COPD exacerbations as above. The patient discussed that he will attempt to quit using the Chantix he has at home. 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 The patient's metformin was increased. The patient should have routine hemoglobin A1c's drawn and additional oral medications as well as insulin may be indicated for maintaining hemoglobin A1c goal of approximately 7 to 8, though this goal should be individualized based on the patient's preference and limited life expectancy. The patient should continue activity as tolerated and have a heart healthy consistent carbohydrate diet limiting caffeine. TIME SPENT: Approximately 60 minutes were spent on this discharge, 30 of which were spent [id number] with the patient obtaining history and physical and discussing treatment plan. KOREY CEBALLOS [id number]/[facility] #: [id number] TER[place]
== END 2017-10-10 15:48 | disposition home or self-care (01) ==
LOC: ED 16:26 → MEDTELE 20:02
PROVIDERS: ADMIT Internal Medicine; ATTEND Internal Medicine
DX: J44.1 Chronic obstructive pulmonary disease with (acute) exacerbation (principal); J96.11 Chronic respiratory failure with hypoxia; I25.10 Atherosclerotic heart disease of native coronary artery without angina pectoris; Z95.5 Presence of coronary angioplasty implant and graft; I50.20 Unspecified systolic (congestive) heart failure; E11.9 Type 2 diabetes mellitus without complications; Z79.4 Long term (current) use of insulin; F17.210 Nicotine dependence, cigarettes, uncomplicated; I73.9 Peripheral vascular disease, unspecified; D47.2 Monoclonal gammopathy; Z79.899 Other long term (current) drug therapy; Z88.0 Allergy status to penicillin; I25.2 Old myocardial infarction; R00.0 Tachycardia, unspecified
CPT/HCPCS: 36415; 71046; 80053; 83880; 84484; 85025; 87040; 93005; 96365; 96372; 96375; 96376; 99284; A9270-GY; G0378; J0456; J0780; J1644; J2920; J2930; J7512